=== PATIENT | male | born 1975 | race Caucasian/White ===

== ENCOUNTER 2018-03-15 08:13 | Emergency (ER) | payer SELFPAY ==
[~2018-03-15] VITALS: Ht 180.3 cm; Wt 102.3 kg
[2018-03-15 08:16] VITALS: Ht 180.3 cm; Wt 102.3 kg
[2018-03-15] MEDS ORDERED: TRAZODONE HCL150 MG PO (08:18)
[2018-03-15] MEDS ORDERED: LEXAPRO10 MG PO (08:18)
[2018-03-15] MEDS ORDERED: ZYPREXA10 MG PO (08:18)
[2018-03-15] MEDS ORDERED: CYCLOBENZAPRINE10 MG PO (10:05)
[2018-03-15] MEDS ORDERED: ULTRAM50 MG PO (10:05)
[2018-03-15 10:45] VITALS: BP 133/78
[2018-04-03 08:30] VITALS: Ht 180.3 cm; Wt 102.3 kg
== END 2018-03-15 10:46 | disposition home or self-care (01) ==
LOC: D.ER 08:13
DX: M54.16 Radiculopathy, lumbar region (principal); G40.909 Epilepsy, unspecified, not intractable, without status epilepticus; I10 Essential (primary) hypertension; F17.200 Nicotine dependence, unspecified, uncomplicated

== ENCOUNTER 2018-03-25 07:32 | Inpatient (IN) | payer MEDICAID ==
[~2018-03-25] VITALS: Ht 180.3 cm; Wt 102.1 kg
[~2018-03-25 07:32] MED LIST: CYCLOBENZAPRINE10 MG PO; LEXAPRO10 MG PO; TRAZODONE HCL150 MG PO; ULTRAM50 MG PO; ZYPREXA10 MG PO
--- NOTE | 2018-03-25 08:03 | NUR ---
POS OCCULT STOOL IS POSITIVE.
[2018-03-25 08:13] VITALS: BP 154/86
[2018-03-25 08:23] LABS: BASOPHILS 0.3 % (0-2); EOSINOPHILS 5.5 % (0-7); HEMATOCRIT 42.1 % (42.0-54.0); HEMOGLOBIN 14.5 g/dL (13.5-17.5); IMMATURE GRANULOCYTES 0.3 % (0-5); LYMPHOCYTES 13.7 % (15-50); MCH 30.9 pg (26.0-34.0); MCHC 34.4 g/dL (31.0-37.0); MCV 89.6 fL (80.0-100.0); MEAN PLATELET VOLUME 9.2 fL (7.4-10.4); MONOCYTES 4.7 % (2-11); NEUTROPHILS 75.5 % (40-80); PLATELET COUNT 251 10x3/uL (130-400); WBC 11.7 10x3/uL (4.8-10.8)
[2018-03-25 08:27] LABS: APTT 28.3 SECONDS (22.8-39.4); INR 0.92 (0.85-1.17); PROTIME 11.9 SECONDS (11.6-15.0)
[2018-03-25 08:31] LABS: APPEARANCE CLEAR (CLEAR); BILIRUBIN NEGATIVE (NEGATIVE); COLOR YELLOW (YELLOW); GLUCOSE NEGATIVE (NEGATIVE); KETONE NEGATIVE (NEGATIVE); NITRITE NEGATIVE (NEGATIVE); PROTEIN NEGATIVE (NEGATIVE); SPECIFIC GRAVITY 1.015 (1.005-1.020); UROBILINOGEN NORMAL (NORMAL)
[2018-03-25 08:32] LABS: ALBUMIN 3.5 g/dL (3.4-5.0); ALKALINE PHOSPHATASE 102 U/L (46-116); ALT (SGPT) 23 U/L (10-68); AMYLASE - SERUM 88 U/L (25-115); BILIRUBIN - TOTAL 0.26 mg/dL (0.2-1.3); CALC OSMOLALITY 282 mosm/kg (275-300); CALCIUM 8.6 mg/dL (8.5-10.1); CARBON DIOXIDE 26.4 mmol/L (21.0-32.0); CHLORIDE - SERUM 105 mmol/L (98-107); CREATININE - SERUM 1.1 mg/dL (0.6-1.3); LIPASE 155 U/L (73-393); POTASSIUM - SERUM 4.1 mmol/L (3.5-5.1); PROTEIN - SERUM 7.4 g/dL (6.4-8.2); SODIUM 140 mmol/L (136-145); UREA NITROGEN 15 mg/dL (7-18); eGFR NON AFRICAN AMERICAN 78 mL/min (90-120)
[2018-03-25 08:33] LABS: GLUCOSE 149 mg/dL (74-106)
[2018-03-25 08:35] LABS: BACTERIA FEW /hpf (NONE SEEN); EPITHELIAL CELLS RARE /hpf (0-5); RED CELLS - URINE 0-5 /hpf (0-5); WHITE CELLS - URINE OCC /hpf (0-5)
--- NOTE | 2018-03-25 09:37 | NUR ---
PT REQUESTING SOMETHING FOR PAIN 12/06, REPORTS THE MORPHINE HE RECEIVED EARLIER HELPED SOME BUT HAS WORN OFF. EDP NOTIFIED. PATIENT TO RESTROOM.
[2018-03-25 09:50] VITALS: BP 169/97
[2018-03-25 11:03] VITALS: BP 146/102
[2018-03-25 12:00] VITALS: BP 140/83
[2018-03-25 13:13] VITALS: BP 140/100; BMI 31.4
[2018-03-25 14:52] LABS: HEMATOCRIT 40.4 % (42.0-54.0); HEMOGLOBIN 13.9 g/dL (13.5-17.5)
[2018-03-25 20:22] LABS: HEMATOCRIT 40.7 % (42.0-54.0); HEMOGLOBIN 13.9 g/dL (13.5-17.5)
[2018-03-26 00:35] VITALS: BP 135/84
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
--- NOTE | 2018-03-26 04:42 | NUR ---
PT APOLOGIZED FOR HIS BEHAVIOR. RESUMING POC. WITH PT RATHER THAN TRADING WITH OTHER RN. WILL CONTINUE POC. OBTAINED ORDER FOR 10 REGLAN AND 50 NOELLE.
[2018-03-26 04:46] VITALS: BP 155/83
--- NOTE | 2018-03-26 05:57 | NUR ---
A CAVEAT TP PREVIOUS NOTES, ALEX WILLIS SPOKE WITH ER DOC AND REGLAN/NOELLE HAS BEEN USED IN THE PAST FOR MIGRANES. CALLED [facility] [phone] NUMBER AND THEY DIRECTED ME TO ER FOR PAGE FOR ORDERS. OBTAINED ORDER THROUGH ER DOC. WILL CONTINUE POC.
[2018-03-26 07:45] LABS: BASOPHILS 0.4 % (0-2); EOSINOPHILS 2.7 % (0-7); HEMATOCRIT 40.9 % (42.0-54.0); HEMOGLOBIN 14.1 g/dL (13.5-17.5); IMMATURE GRANULOCYTES 0.7 % (0-5); LYMPHOCYTES 23.1 % (15-50); MCH 30.7 pg (26.0-34.0); MCHC 34.5 g/dL (31.0-37.0); MCV 88.9 fL (80.0-100.0); MONOCYTES 4.6 % (2-11); NEUTROPHILS 68.5 % (40-80); PLATELET COUNT 245 10x3/uL (130-400); RDW 13.1 % (11.5-14.5); WBC 9.4 10x3/uL (4.8-10.8)
[2018-03-26 08:08] VITALS: BP 141/79
[2018-03-26 08:11] LABS: ALBUMIN 3.5 g/dL (3.4-5.0); ALKALINE PHOSPHATASE 93 U/L (46-116); ALT (SGPT) 24 U/L (10-68); BILIRUBIN - TOTAL 0.33 mg/dL (0.2-1.3); C-REACTIVE PROTEIN 1.5 mg/dL (0.0-0.9); CALC OSMOLALITY 277 mosm/kg (275-300); CALCIUM 8.5 mg/dL (8.5-10.1); CARBON DIOXIDE 25.4 mmol/L (21.0-32.0); CHLORIDE - SERUM 102 mmol/L (98-107); CREATININE - SERUM 0.9 mg/dL (0.6-1.3); GLUCOSE 113 mg/dL (74-106); PROTEIN - SERUM 7.1 g/dL (6.4-8.2); SODIUM 139 mmol/L (136-145); eGFR NON AFRICAN AMERICAN > 90 mL/min (90-120)
[2018-03-26 08:16] LABS: UREA NITROGEN 10 mg/dL (7-18)
[2018-03-26 11:14] LABS: ERYTHROCYTE SEDIMENTATION RATE 20 mm/hr (0-15)
[2018-03-26 12:16] VITALS: BP 155/92
--- NOTE | 2018-03-26 14:38 | NUR ---
RIGHT WRIST IV INFILTRATED AND REMOVED. RESITED IN RIGHT HAND WITH #22G ANGIOCATH X 1 ATTEMPT PER MORENO DAWSON
[2018-03-26 15:10] VITALS: Ht 180.3 cm; Wt 102.1 kg
--- NOTE | 2018-03-26 16:25 | NUR ---
RATIONALE FOR SCD'S EXPLAINED. REFUSED SCD'S
[2018-03-26 17:21] VITALS: BP 145/39
--- NOTE | 2018-03-26 19:12 | NUR ---
PATIENT IS RESTING IN HIS BED. HE DENIES ANY NEEDS. BED IS DOWN LOW WITH SIDE RAILS UP X2. CALL LIGHT IS IN REACH.
[2018-03-27 01:32] VITALS: BP 137/83
[2018-03-27 07:01] LABS: BASOPHILS 0.2 % (0-2); EOSINOPHILS 4.1 % (0-7); HEMATOCRIT 40.2 % (42.0-54.0); HEMOGLOBIN 13.8 g/dL (13.5-17.5); IMMATURE GRANULOCYTES 0.5 % (0-5); LYMPHOCYTES 30.1 % (15-50); MCH 30.5 pg (26.0-34.0); MCHC 34.3 g/dL (31.0-37.0); MCV 88.7 fL (80.0-100.0); MEAN PLATELET VOLUME 8.8 fL (7.4-10.4); MONOCYTES 9.1 % (2-11); PLATELET COUNT 255 10x3/uL (130-400); RBC 4.53 10x6/uL (4.20-6.10); RDW 12.8 % (11.5-14.5); WBC 8.6 10x3/uL (4.8-10.8)
[2018-03-27 07:11] LABS: ALBUMIN 3.4 g/dL (3.4-5.0); ALKALINE PHOSPHATASE 87 U/L (46-116); ALT (SGPT) 24 U/L (10-68); BILIRUBIN - TOTAL 0.27 mg/dL (0.2-1.3); CALC OSMOLALITY 275 mosm/kg (275-300); CALCIUM 8.7 mg/dL (8.5-10.1); CARBON DIOXIDE 27.1 mmol/L (21.0-32.0); CHLORIDE - SERUM 102 mmol/L (98-107); CREATININE - SERUM 0.9 mg/dL (0.6-1.3); GLUCOSE 114 mg/dL (74-106); POTASSIUM - SERUM 3.8 mmol/L (3.5-5.1); PROTEIN - SERUM 6.9 g/dL (6.4-8.2); SODIUM 138 mmol/L (136-145); UREA NITROGEN 11 mg/dL (7-18); eGFR NON AFRICAN AMERICAN > 90 mL/min (90-120)
[2018-03-27 08:32] VITALS: BP 154/89
--- NOTE | 2018-03-27 09:30 | NUR ---
PT UP AMBULATING IN THE HALLWAY. RESP EVEN AND NONLABORED. PT A/O X4. NAD NOTED.
[2018-03-27] MEDS ORDERED: LEVAQUIN750 MG PO (09:55)
[2018-03-27] MEDS ORDERED: FLAGYL500 MG PO (09:55)
[2018-03-27] MEDS ORDERED: PROTONIX40 MG PO (09:56)
--- NOTE | 2018-03-27 10:51 | MORECARE ---
CASE MANAGEMENT DISCHARGE SUMMARY PATIENT: MOLLY EDMONDSON UNIT: [id number] ADM DATE: 03/25/18 AGE: 42 : [birth year] SEX: M ROOM/BED: D.1213 AUTHOR: GLADYS TAYLOR PHYSICIAN: REFERRING PHYSICIAN: SMITA LONG MD DATE OF SERVICE: 03/27/18 Discharge Plan Patient Name: MOLLY EDMONDSON Facility: [facility]:[place] : 1975 Planned Disposition: Home Anticipated Discharge Date: 03/27/18 Discharge Date: Expected LOS: 2 Initial Reviewer: [email or web address] Initial Review Date: 03/27/2018 Generated: 03/27/18 11:51 am Comments DCP- Discharge Planning Updated by [email or web address]: Leonarda Mendoza on 03/27/18 9:[address] Patient Name: MOLLY EDMONDSON Admission Status: ER Accout number: [id number] Admission Date: 03-25-2018 : 1975 Admission Diagnosis: Attending: SMITA LONG Current LOS: 2 Anticipated DC Date: 03-27-2018 Planned Disposition: Home Primary Insurance: MEDICAID [place] Discharge Planning Comments: CM MET WITH PATIENT ABOUT DC PLANNING/NEEDS. [facility] PLANS TO DC HOME WITH FAMILY. [facility] DOESN'T HAVE A PCP YET BUT IS GOING TO GET ONE. CM WILL GIVE PATIENT A LIST OF PROVIDERS. CM WILL FOLLOW AND ASSIST NEEDED WITH DC PLANNING/NEEDS. Fishing Worker: Leonarda Mendoza DCPIA - Discharge Planning Initial Assessment Updated by [email or web address]: Leonarda Mendoza on 03/27/18 10:41 am * Is the patient Alert and Oriented? Yes * PCP NOT YET * Pharmacy [facility] * Preadmission Environment Home with Family * ADLs Independent * Equipment None * List name and contact numbers for known caregivers / representatives who currently or will assist patient after discharge: HAN COELLO, * Community resources currently utilized None * Additional services required to return to the preadmission environment? No * Can the patient safely return to the preadmission environment? Yes * Has this patient been hospitalized within the prior 30 days at any hospital? No Patient Name: MOLLY EDMONDSON Page 14019 at 1051 All edits/amendments must be made on the electronic document DICTATION DATE: 03/27/18 1051 DESIGN AGENT: BOUCHRA 03/27/18 1051 RPT#: [id number] DC DATE: STATUS: ADM IN [facility] [address] [place] [address] END OF REPORT
--- NOTE | 2018-03-27 16:04 | MORECARE ---
CASE MANAGEMENT DISCHARGE SUMMARY PATIENT: MOLLY EDMONDSON UNIT: [id number] ADM DATE: 03/25/18 AGE: 42 : 77 SEX: M ROOM/BED: D.1213 AUTHOR: GLADYS TAYLOR PHYSICIAN: REFERRING PHYSICIAN: SMITA LONG MD DATE OF SERVICE: 03/27/18 Discharge Plan Patient Name: MOLLY EDMONDSON Facility: [facility]:[place] : 1975 Planned Disposition: Home Anticipated Discharge Date: 03/27/18 Discharge Date: Expected LOS: 2 Initial Reviewer: [email or web address] Initial Review Date: 03/27/2018 Generated: 03/27/18 5:04 pm Comments DCP- Discharge Planning Updated by [email or web address]: Leonadra Mendoza on 03/27/18 3:[address] Patient Name: MOLLY EDMONDSON Admission Status: ER Accout number: [id number] Admission Date: 03-25-2018 : 1975 Admission Diagnosis:VASCULAR DISORDER OF INTESTINE, UNSPECIFIED Attending: SMITA LONG Current LOS: 2 Anticipated DC Date: 03-27-2018 Planned Disposition: Home Primary Insurance: MEDICAID [place] Discharge Planning Comments: CM SPOKE WITH DR. BRUCE AND SHE STATES PATIENT CAN BE DISCHARGED. HE NEEDS TO GET HIS RECORDS TO HER ON HIS TREATMENT FOR GASTRIC CANCER FROM THE FACILITY HE USED. HE STATES HIS MOM IS WORKING ON IT. HE NEEDS APPOINTMENT WITH DR. BRUCE IN 2 WEEKS. COMPLETE 10 DAYS OF ANTIBIOTICS. Park Recreation Manager: Leonarda Mendoza DCP- Discharge Planning Updated by [email or web address]: Leonarda Mendoza on 03/27/18 9:[address] Patient Name: MOLLY EDMONDSON Admission Status: ER Accout number: [id number] Admission Date: 03-25-2018 : 1975 Admission Diagnosis: Attending: SMITA LONG Current LOS: 2 Anticipated DC Date: 03-27-2018 Planned Disposition: Home Primary Insurance: MEDICAID [place] Discharge Planning Comments: CM MET WITH PATIENT ABOUT DC PLANNING/NEEDS. [facility] PLANS TO DC HOME WITH FAMILY. [facility] DOESN'T HAVE A PCP YET BUT IS GOING TO GET ONE. CM WILL GIVE PATIENT A LIST OF PROVIDERS. CM WILL FOLLOW AND ASSIST NEEDED WITH DC PLANNING/NEEDS. Park Recreation Manager: Leonarda Mendoza DCPIA - Discharge Planning Initial Assessment Updated by [email or web address]: Leonarda Mendoza on 03/27/18 10:41 am * Is the patient Alert and Oriented? Yes * PCP NOT YET * Pharmacy [facility] * Preadmission Environment Home with Family * ADLs Independent * Equipment None * List name and contact numbers for known caregivers / representatives who currently or will assist patient after discharge: HAN COELLO, * Community resources currently utilized None * Additional services required to return to the preadmission environment? No * Can the patient safely return to the preadmission environment? Yes * Has this patient been hospitalized within the prior 30 days at any hospital? No Last DP export: 03/27/18 9:51 a Patient Name: MOLLY EDMONDSON Page 65177 at 1604 All edits/amendments must be made on the electronic document DICTATION DATE: 03/27/181602 CATEGORY DEVELOPMENT ANALYST: BOUCHRA 03/27/181602 RPT#: [id number] DC DATE: STATUS: ADM IN [facility] [address] [place] [address] END OF REPORT
--- NOTE | 2018-03-27 17:42 | NUR ---
PATIENT UP AMBULATING ABOUT FACILITY IV D/C'D AT 1630. PATIENT UPSET ABOUT NO PAIN MEDS. DISCHARGE INSTRUCTIONS GIVEN AND VERBALIZED UNDERSTANDING. PATIENT VERY VERY UPSET ABOUT NO PAIN MEDS. DR. MOYER NOTIFIED AND SAID NO PAIN MEDS D/T SLOWING BOWEL DOWN THAT HE CAN TAKE TYLENOL IF NEEDED. PT DISCHARGE.
--- NOTE | 2018-03-28 08:13 | MORECARE ---
CASE MANAGEMENT DISCHARGE SUMMARY PATIENT: MOLLY EDMONDSON UNIT: [id number] ADM DATE: 03/25/18 AGE: 42 : 77 SEX: M ROOM/BED: D.1213 AUTHOR: GLADYS TAYLOR PHYSICIAN: REFERRING PHYSICIAN: SMITA LONG MD DATE OF SERVICE: 03/28/18 Discharge Plan Patient Name: MOLLY EDMONDSON Facility: [facility]:[place] : 1975 Planned Disposition: Home Anticipated Discharge Date: 03/27/18 Discharge Date: 03/27/2018 Expected LOS: 2 Initial Reviewer: [email or web address] Initial Review Date: 03/27/2018 Generated: 03/28/18 9:13 am Comments DCP- Discharge Planning Updated by [email or web address]: Leonarda Mendoza on 03/27/18 3:[address] Patient Name: MOLLY EDMONDSON Admission Status: ER Accout number: [id number] Admission Date: 03-25-2018 : 1975 Admission Diagnosis:VASCULAR DISORDER OF INTESTINE, UNSPECIFIED Attending: SMITA LONG Current LOS: 2 Anticipated DC Date: 03-27-2018 Planned Disposition: Home Primary Insurance: MEDICAID [place] Discharge Planning Comments: CM SPOKE WITH DR. BRUCE AND SHE STATES PATIENT CAN BE DISCHARGED. HE NEEDS TO GET HIS RECORDS TO HER ON HIS TREATMENT FOR GASTRIC CANCER FROM THE FACILITY HE USED. HE STATES HIS MOM IS WORKING ON IT. HE NEEDS APPOINTMENT WITH DR. BRUCE IN 2 WEEKS. COMPLETE 10 DAYS OF ANTIBIOTICS. Marine Cargo Specialist: Leonarda Mendoza DCP- Discharge Planning Updated by [email or web address]: Leonarda Mendoza on 03/27/18 9:[address] Patient Name: MOLLY EDMONDSON Admission Status: ER Accout number: [id number] Admission Date: 03-25-2018 : 1975 Admission Diagnosis: Attending: SMITA LONG Current LOS: 2 Anticipated DC Date: 03-27-2018 Planned Disposition: Home Primary Insurance: MEDICAID [place] Discharge Planning Comments: CM MET WITH PATIENT ABOUT DC PLANNING/NEEDS. [facility] PLANS TO DC HOME WITH FAMILY. [facility] DOESN'T HAVE A PCP YET BUT IS GOING TO GET ONE. CM WILL GIVE PATIENT A LIST OF PROVIDERS. CM WILL FOLLOW AND ASSIST NEEDED WITH DC PLANNING/NEEDS. Marine Cargo Specialist: Leonarda Mendoza DCPIA - Discharge Planning Initial Assessment Updated by [email or web address]: Leonarda Mendoza on 03/27/18 10:41 am * Is the patient Alert and Oriented? Yes * PCP NOT YET * Pharmacy [facility] * Preadmission Environment Home with Family * ADLs Independent * Equipment None * List name and contact numbers for known caregivers / representatives who currently or will assist patient after discharge: HAN COELLO, * Community resources currently utilized None * Additional services required to return to the preadmission environment? No * Can the patient safely return to the preadmission environment? Yes * Has this patient been hospitalized within the prior 30 days at any hospital? No Last DP export: 03/27/18 3:04 p Patient Name: MOLLY EDMONDSON Page 34803 at 0813 All edits/amendments must be made on the electronic document DICTATION DATE: 03/28/18812 BALLOON MAKER: BOUCHRA 03/28/18812 RPT#: [id number] DC DATE:03/27/18 STATUS: DIS IN [facility] [address] [place] [address] END OF REPORT
[2018-03-30 20:07] LABS: OVA + PARASITE EXAM Final report (())
== END 2018-03-27 17:46 | disposition home or self-care (01) | DRG 394 ==
LOC: D.ER 07:32 → D.M3 10:24 → D.EDHOLD 10:24 → D.M3 11:03
PROVIDERS: Family Medicine; ADMIT Internal Medicine Nephrology
DX: K55.9 Vascular disorder of intestine, unspecified (principal); F31.30 Bipolar disorder, current episode depressed, mild or moderate severity, unspecified; F17.213 Nicotine dependence, cigarettes, with withdrawal; K52.9 Noninfective gastroenteritis and colitis, unspecified; I10 Essential (primary) hypertension; K59.00 Constipation, unspecified; G89.29 Other chronic pain

== ENCOUNTER 2018-04-03 08:22 | Emergency (ER) | payer MEDICAID ==
[~2018-04-03] VITALS: Ht 180.3 cm; Wt 100.0 kg
[~2018-04-03 08:22] MED LIST changes: +FLAGYL500 MG PO; +LEVAQUIN750 MG PO; +PROTONIX40 MG PO
[2018-04-03 08:30] VITALS: BP 141/98; Ht 180.3 cm; Wt 100.0 kg
[2018-04-03 09:06] LABS: BASOPHILS 0.3 % (0-2); HEMATOCRIT 39.6 % (42.0-54.0); HEMOGLOBIN 13.4 g/dL (13.5-17.5); IMMATURE GRANULOCYTES 0.2 % (0-5); LYMPHOCYTES 26.1 % (15-50); MCH 30.5 pg (26.0-34.0); MCHC 33.8 g/dL (31.0-37.0); MEAN PLATELET VOLUME 8.7 fL (7.4-10.4); MONOCYTES 6.2 % (2-11); NEUTROPHILS 63.2 % (40-80); PLATELET COUNT 224 10x3/uL (130-400); RDW 13.2 % (11.5-14.5); WBC 5.9 10x3/uL (4.8-10.8)
[2018-04-03 09:35] LABS: ALBUMIN 3.3 g/dL (3.4-5.0); ALKALINE PHOSPHATASE 82 U/L (46-116); ALT (SGPT) 24 U/L (10-68); BILIRUBIN - TOTAL 0.16 mg/dL (0.2-1.3); CALC OSMOLALITY 283 mosm/kg (275-300); CALCIUM 8.4 mg/dL (8.5-10.1); CARBON DIOXIDE 26.2 mmol/L (21.0-32.0); CHLORIDE - SERUM 109 mmol/L (98-107); CREATININE - SERUM 0.9 mg/dL (0.6-1.3); GLUCOSE 110 mg/dL (74-106); POTASSIUM - SERUM 4.2 mmol/L (3.5-5.1); PROTEIN - SERUM 6.6 g/dL (6.4-8.2); SODIUM 142 mmol/L (136-145); UREA NITROGEN 12 mg/dL (7-18); eGFR NON AFRICAN AMERICAN > 90 mL/min (90-120)
[2018-04-03 09:38] LABS: AMYLASE - SERUM 84 U/L (25-115); LIPASE 144 U/L (73-393); TROPONIN-I < 0.017 ng/mL (0.000-0.060)
== END 2018-04-03 09:45 | disposition home or self-care (01) ==
LOC: D.ER 08:22
PROVIDERS: Emergency Medicine
DX: R10.30 Lower abdominal pain, unspecified (principal); F17.200 Nicotine dependence, unspecified, uncomplicated

== ENCOUNTER 2018-04-15 10:55 | Emergency (ER) | payer MEDICAID ==
[~2018-04-15] VITALS: Ht 180.3 cm; Wt 100.0 kg
[2018-04-15 10:59] VITALS: Ht 180.3 cm; Wt 100.0 kg
[2018-04-15 11:39] LABS: APPEARANCE CLEAR (CLEAR); BILIRUBIN NEGATIVE (NEGATIVE); COLOR YELLOW (YELLOW); GLUCOSE NEGATIVE (NEGATIVE); KETONE NEGATIVE (NEGATIVE); NITRITE NEGATIVE (NEGATIVE); PROTEIN 1+ mg/dL (NEGATIVE); SPECIFIC GRAVITY 1.015 (1.005-1.020); UROBILINOGEN NORMAL (NORMAL)
[2018-04-15 11:40] LABS: BACTERIA FEW /hpf (NONE SEEN); EPITHELIAL CELLS NSEEN /hpf (0-5); RED CELLS - URINE 0-5 /hpf (0-5); WHITE CELLS - URINE 0-5 /hpf (0-5)
[2018-04-15 12:03] LABS: BASOPHILS 0.3 % (0-2); EOSINOPHILS 2.7 % (0-7); HEMATOCRIT 42.1 % (42.0-54.0); HEMOGLOBIN 14.8 g/dL (13.5-17.5); IMMATURE GRANULOCYTES 0.3 % (0-5); LYMPHOCYTES 28.8 % (15-50); MCH 31.1 pg (26.0-34.0); MCHC 35.2 g/dL (31.0-37.0); MCV 88.4 fL (80.0-100.0); MEAN PLATELET VOLUME 9.9 fL (7.4-10.4); MONOCYTES 6.4 % (2-11); NEUTROPHILS 61.5 % (40-80); PLATELET COUNT 227 10x3/uL (130-400); RBC 4.76 10x6/uL (4.20-6.10); RDW 12.7 % (11.5-14.5); WBC 6.7 10x3/uL (4.8-10.8)
[2018-04-15 12:16] LABS: INR 0.98 (0.85-1.17); PROTIME 12.5 SECONDS (11.6-15.0)
[2018-04-15 13:02] LABS: ALBUMIN 3.8 g/dL (3.4-5.0); ALKALINE PHOSPHATASE 102 U/L (46-116); ALT (SGPT) 20 U/L (10-68); AMYLASE - SERUM 87 U/L (25-115); BILIRUBIN - TOTAL 0.47 mg/dL (0.2-1.3); CALC OSMOLALITY 273 mosm/kg (275-300); CALCIUM 8.6 mg/dL (8.5-10.1); CHLORIDE - SERUM 103 mmol/L (98-107); GLUCOSE 81 mg/dL (74-106); LIPASE 332 U/L (73-393); POTASSIUM - SERUM 4.2 mmol/L (3.5-5.1); PROTEIN - SERUM 7.4 g/dL (6.4-8.2); SODIUM 138 mmol/L (136-145); UREA NITROGEN 10 mg/dL (7-18); eGFR NON AFRICAN AMERICAN 87 mL/min (90-120)
[2018-04-15] MEDS ORDERED: BENTYL 20 MG TA20 MG PO (15:38)
[2018-04-15] MEDS ORDERED: CIPRO500 MG PO (15:38)
[2018-04-15] MEDS ORDERED: FLAGYL500 MG PO (15:38)
[2018-04-15 16:13] VITALS: BP 130/92
== END 2018-04-15 16:18 | disposition home or self-care (01) ==
LOC: D.ER 10:55
PROVIDERS: Family Medicine
DX: K57.92 Diverticulitis of intestine, part unspecified, without perforation or abscess without bleeding (principal); K29.70 Gastritis, unspecified, without bleeding; R11.0 Nausea; Z86.73 Personal history of transient ischemic attack (TIA), and cerebral infarction without residual deficits; F17.200 Nicotine dependence, unspecified, uncomplicated

== ENCOUNTER 2018-04-21 20:46 | Emergency (ER) | payer MEDICAID ==
[~2018-04-21] VITALS: Ht 180.3 cm; Wt 100.0 kg
[~2018-04-21 20:46] MED LIST changes: +BENTYL 20 MG TA20 MG PO; +CIPRO500 MG PO
[2018-04-21 20:59] VITALS: Ht 180.3 cm; Wt 100.0 kg
[2018-04-21 21:44] LABS: APTT 27.1 SECONDS (22.8-39.4); INR 0.97 (0.85-1.17); PROTIME 12.4 SECONDS (11.6-15.0)
[2018-04-21 21:48] LABS: BASOPHILS 0.3 % (0-2); HEMATOCRIT 40.1 % (42.0-54.0); IMMATURE GRANULOCYTES 0.3 % (0-5); LYMPHOCYTES 41.2 % (15-50); MCH 30.9 pg (26.0-34.0); MCHC 34.9 g/dL (31.0-37.0); MCV 88.5 fL (80.0-100.0); MEAN PLATELET VOLUME 9.6 fL (7.4-10.4); MONOCYTES 6.5 % (2-11); NEUTROPHILS 48.7 % (40-80); PLATELET COUNT 203 10x3/uL (130-400); RBC 4.53 10x6/uL (4.20-6.10); RDW 12.9 % (11.5-14.5); WBC 7.1 10x3/uL (4.8-10.8)
[2018-04-21 22:09] LABS: ALBUMIN 3.8 g/dL (3.4-5.0); ALKALINE PHOSPHATASE 105 U/L (46-116); ALT (SGPT) 21 U/L (10-68); BILIRUBIN - TOTAL 0.22 mg/dL (0.2-1.3); CALC OSMOLALITY 282 mosm/kg (275-300); CALCIUM 8.5 mg/dL (8.5-10.1); CARBON DIOXIDE 23.5 mmol/L (21.0-32.0); CHLORIDE - SERUM 105 mmol/L (98-107); CREATININE - SERUM 1.2 mg/dL (0.6-1.3); GLUCOSE 93 mg/dL (74-106); POTASSIUM - SERUM 3.7 mmol/L (3.5-5.1); SODIUM 142 mmol/L (136-145); UREA NITROGEN 12 mg/dL (7-18); eGFR NON AFRICAN AMERICAN 71 mL/min (90-120)
[2018-04-21 22:18] LABS: C-REACTIVE PROTEIN 1.1 mg/dL (0.0-0.9); CKMB 0.6 U/L (0.0-3.6); CREATINE KINASE 53 UL (21-232); LIPASE 118 U/L (73-393)
[2018-04-21] MEDS ORDERED: FLAGYL500 MG PO (23:32)
[2018-04-21] MEDS ORDERED: CIPRO500 MG PO (23:32)
[2018-04-21 23:51] VITALS: BP 155/91
== END 2018-04-21 23:51 | disposition home or self-care (01) ==
LOC: D.ER 20:46
PROVIDERS: Family Medicine
DX: K92.2 Gastrointestinal hemorrhage, unspecified (principal); K52.9 Noninfective gastroenteritis and colitis, unspecified; F17.200 Nicotine dependence, unspecified, uncomplicated

== ENCOUNTER 2018-05-02 23:42 | Emergency (ER) | payer MEDICAID ==
[~2018-05-02] VITALS: Ht 180.3 cm; Wt 100.0 kg
[2018-05-03 00:05] VITALS: Ht 180.3 cm; Wt 100.0 kg
[2018-05-03 01:08] LABS: BASOPHILS 0.3 % (0-2); EOSINOPHILS 4.5 % (0-7); HEMATOCRIT 40.7 % (42.0-54.0); HEMOGLOBIN 14.2 g/dL (13.5-17.5); IMMATURE GRANULOCYTES 0.3 % (0-5); LYMPHOCYTES 28.9 % (15-50); MCH 30.5 pg (26.0-34.0); MCHC 34.9 g/dL (31.0-37.0); MCV 87.5 fL (80.0-100.0); MONOCYTES 4.7 % (2-11); NEUTROPHILS 61.3 % (40-80); PLATELET COUNT 210 10x3/uL (130-400); RBC 4.65 10x6/uL (4.20-6.10); RDW 12.8 % (11.5-14.5); WBC 8.7 10x3/uL (4.8-10.8)
[2018-05-03 01:10] LABS: APPEARANCE CLEAR (CLEAR); BILIRUBIN NEGATIVE (NEGATIVE); COLOR YELLOW (YELLOW); GLUCOSE NEGATIVE (NEGATIVE); KETONE NEGATIVE (NEGATIVE); NITRITE NEGATIVE (NEGATIVE); PROTEIN NEGATIVE (NEGATIVE); SPECIFIC GRAVITY 1.015 (1.005-1.020); UROBILINOGEN NORMAL (NORMAL)
[2018-05-03 01:15] LABS: ALBUMIN 3.6 g/dL (3.4-5.0); ALKALINE PHOSPHATASE 109 U/L (46-116); ALT (SGPT) 27 U/L (10-68); BILIRUBIN - TOTAL 0.27 mg/dL (0.2-1.3); CALC OSMOLALITY 280 mosm/kg (275-300); CALCIUM 8.6 mg/dL (8.5-10.1); CARBON DIOXIDE 27.1 mmol/L (21.0-32.0); CHLORIDE - SERUM 104 mmol/L (98-107); GLUCOSE 101 mg/dL (74-106); PROTEIN - SERUM 7.2 g/dL (6.4-8.2); SODIUM 141 mmol/L (136-145); UREA NITROGEN 13 mg/dL (7-18); eGFR NON AFRICAN AMERICAN 87 mL/min (90-120)
[2018-05-03 03:48] VITALS: BP 135/45
== END 2018-05-03 03:49 | disposition home or self-care (01) ==
LOC: D.ER 23:42
PROVIDERS: Family Medicine
DX: R10.84 Generalized abdominal pain (principal)

== ENCOUNTER 2018-06-19 15:23 | Emergency (ER) | payer OTHER ==
[~2018-06-19] VITALS: Ht 175.3 cm; Wt 100.0 kg
[2018-06-19 15:25] VITALS: Ht 175.3 cm; Wt 100.0 kg
[2018-06-19] MEDS ORDERED: PHENERGAN25 M1 PO (15:27)
[2018-06-19] MEDS ORDERED: FAMOTIDINE10 MG PO (15:27)
[2018-06-19] MEDS ORDERED: CARAFATE1 G PO (15:28)
[2018-06-19 15:58] LABS: BASOPHILS 0.3 % (0-2); EOSINOPHILS 1.2 % (0-7); HEMATOCRIT 42.7 % (42.0-54.0); HEMOGLOBIN 15.1 g/dL (13.5-17.5); IMMATURE GRANULOCYTES 0.1 % (0-5); LYMPHOCYTES 29.9 % (15-50); MCH 30.8 pg (26.0-34.0); MCHC 35.4 g/dL (31.0-37.0); MEAN PLATELET VOLUME 9.1 fL (7.4-10.4); MONOCYTES 5.9 % (2-11); NEUTROPHILS 62.6 % (40-80); PLATELET COUNT 189 10x3/uL (130-400); RBC 4.91 10x6/uL (4.20-6.10); RDW 12.5 % (11.5-14.5); WBC 7.3 10x3/uL (4.8-10.8)
[2018-06-19 16:15] LABS: APPEARANCE CLEAR (CLEAR); BILIRUBIN NEGATIVE (NEGATIVE); COLOR YELLOW (YELLOW); GLUCOSE NEGATIVE (NEGATIVE); KETONE NEGATIVE (NEGATIVE); NITRITE NEGATIVE (NEGATIVE); PROTEIN NEGATIVE (NEGATIVE); UROBILINOGEN NORMAL (NORMAL)
[2018-06-19 16:27] LABS: ALBUMIN 3.8 g/dL (3.4-5.0); ALKALINE PHOSPHATASE 85 U/L (46-116); ALT (SGPT) 26 U/L (10-68); AMYLASE - SERUM 69 U/L (25-115); BILIRUBIN - TOTAL 0.34 mg/dL (0.2-1.3); CALC OSMOLALITY 276 mosm/kg (275-300); CALCIUM 8.8 mg/dL (8.5-10.1); CARBON DIOXIDE 22.9 mmol/L (21.0-32.0); CHLORIDE - SERUM 105 mmol/L (98-107); GLUCOSE 89 mg/dL (74-106); LIPASE 104 U/L (73-393); POTASSIUM - SERUM 3.8 mmol/L (3.5-5.1); PROTEIN - SERUM 7.2 g/dL (6.4-8.2); SODIUM 140 mmol/L (136-145); UREA NITROGEN 10 mg/dL (7-18); eGFR NON AFRICAN AMERICAN 87 mL/min (90-120)
[2018-06-19 16:31] LABS: TROPONIN-I < 0.017 ng/mL (0.000-0.060)
[2018-06-19] MEDS ORDERED: ANUSOL-HC25 MG RC (20:19)
[2018-06-19 20:32] VITALS: BP 142/109
== END 2018-06-19 20:32 | disposition home or self-care (01) ==
LOC: D.ER 15:23
PROVIDERS: Family Medicine
DX: K64.8 Other hemorrhoids (principal); F17.200 Nicotine dependence, unspecified, uncomplicated

== ENCOUNTER 2018-06-23 16:27 | Observation (INO) | payer OTHER ==
--- NOTE | 2018-06-22 07:00 | NUR ---
RECAreli. IN REPORT FROM OFF-GOING NURSE THAT POISON CONTROLL HAS RELEASED PATIENT AND WILL NO LONGER FOLLOW.
[~2018-06-23 16:27] MED LIST changes: +ANUSOL-HC25 MG RC; +CARAFATE1 G PO; +FAMOTIDINE10 MG PO; +PHENERGAN25 M1 PO
[2018-06-23 16:52] LABS: APPEARANCE CLEAR (CLEAR); BILIRUBIN NEGATIVE (NEGATIVE); COLOR YELLOW (YELLOW); GLUCOSE NEGATIVE (NEGATIVE); KETONE NEGATIVE (NEGATIVE); NITRITE NEGATIVE (NEGATIVE); PROTEIN NEGATIVE (NEGATIVE); SPECIFIC GRAVITY 1.025 (1.005-1.020); UROBILINOGEN NORMAL (NORMAL)
[2018-06-23] MEDS ORDERED: ZYPREXA2.5 MG PO (16:53)
[2018-06-23] MEDS ORDERED: ZOLOFT50 MG PO (16:53)
[2018-06-23] MEDS ORDERED: BUPRENORPHIN-N1 EACH SL (16:53)
[2018-06-23] MEDS ORDERED: KLONOPIN1 MG PO (16:54)
[2018-06-23] MEDS ORDERED: PROTONIX40 MG PO (16:54)
--- NOTE | 2018-06-23 16:59 | NUR ---
POISON CONTROL CALLED , STATES JUST MONITOR PT. WATCH FOR ANY ABNORMAL LABS.
[2018-06-23 17:16] LABS: BASOPHILS 0.3 % (0-2); EOSINOPHILS 4.8 % (0-7); HEMATOCRIT 43.1 % (42.0-54.0); IMMATURE GRANULOCYTES 0.5 % (0-5); LYMPHOCYTES 24.4 % (15-50); MCH 30.5 pg (26.0-34.0); MCHC 34.8 g/dL (31.0-37.0); MCV 87.6 fL (80.0-100.0); MEAN PLATELET VOLUME 9.4 fL (7.4-10.4); MONOCYTES 5.2 % (2-11); NEUTROPHILS 64.8 % (40-80); PLATELET COUNT 175 10x3/uL (130-400); RBC 4.92 10x6/uL (4.20-6.10); RDW 12.9 % (11.5-14.5); WBC 6.2 10x3/uL (4.8-10.8)
[2018-06-23 17:18] LABS: UDS - AMPHET NEGATIVE QUAL (NEGATIVE); UDS - BARB NEGATIVE QUAL (NEGATIVE); UDS - BENZO NEGATIVE QUAL (NEGATIVE); UDS - COCAINE NEGATIVE QUAL (NEGATIVE); UDS - OPIATE NEGATIVE QUAL (NEGATIVE); UDS - PCP NEGATIVE QUAL (NEGATIVE); UDS - THC POSITIVE QUAL (NEGATIVE)
[2018-06-23 17:39] VITALS: BP 117/69
[2018-06-23 18:27] LABS: ACETAMINOPHEN 0.9 ug/mL (10.0-30.0); ALBUMIN 2.9 g/dL (3.4-5.0); ALKALINE PHOSPHATASE 81 U/L (46-116); ALT (SGPT) 24 U/L (10-68); BILIRUBIN - TOTAL 0.16 mg/dL (0.2-1.3); CALC OSMOLALITY 283 mosm/kg (275-300); CALCIUM 8.5 mg/dL (8.5-10.1); CARBON DIOXIDE 27.1 mmol/L (21.0-32.0); CHLORIDE - SERUM 109 mmol/L (98-107); CREATININE - SERUM 0.9 mg/dL (0.6-1.3); GLUCOSE 101 mg/dL (74-106); MAGNESIUM - SERUM 1.7 mg/dL (1.8-2.4); POTASSIUM - SERUM 4.1 mmol/L (3.5-5.1); PROTEIN - SERUM 5.7 g/dL (6.4-8.2); SODIUM 142 mmol/L (136-145); UREA NITROGEN 16 mg/dL (7-18); eGFR NON AFRICAN AMERICAN > 90 mL/min (90-120)
[2018-06-23 19:45] VITALS: BP 120/70; BMI 32.5
--- NOTE | 2018-06-23 19:45 | NUR ---
RECEIVED PT TO ROOM 2309 VIA STRETCHER, ICU MONITORS ESTABLISHED, HR SR ON CM, ADMISSION ASSESSMENT COMPLETED.
--- NOTE | 2018-06-23 20:20 | NUR ---
PT STATING THAT HE IS LEAVING AND WILL "DO WHAT HE HAS TO", AND ATTEMPTING TO PULL IV OUT, ATTEMPTS TO DE-ESCALATE THE SITUATION UNSUCCESSFUL, RN X [address] AT [address]ED[address]IDE. WILL PAGE DR LONG PER PT REQUEST, SECURITY CALLED FOR ASSISTANCE.
--- NOTE | 2018-06-23 20:25 | NUR ---
DR LONG NOTIFIED OF PT UPDATE/REQUEST, ORDER RECEIVED FOR 72 HOUR HOLD. PT NOTIFIED. SANDWICH TRAY PROVIDED PER REQUEST, PT VERBALIZES THAT HE WILL NOT HARM HIMSELF OR ANYONE ELSE, CALL LIGHT IN REACH, ALL OTHER NEEDS DENIED.
--- NOTE | 2018-06-23 21:09 | NUR ---
POISON CONTROL CALLED, UPDATE GIVEN.
[2018-06-23 23:00] VITALS: BP 126/75
--- NOTE | 2018-06-24 00:10 | NUR ---
PT RESTING IN BED WITH EYES CLOSED, AROUSES EASILY TO VOICE, ALL NEEDS DENIED.
--- NOTE | 2018-06-24 02:40 | NUR ---
PT ABLE TO GET UP TO BSC WITH MINIMAL ASSISTANCE, SMALL FORMED BM VOIDED, ABLE TO PROVIDE OWN PERICARE AND RETURN TO BED.
[2018-06-24 03:00] VITALS: BP 133/80
--- NOTE | 2018-06-24 05:10 | NUR ---
PT RESTING IN BED BUT AROUSES TO VOICE EASILY, VSS, APPLE JUICE PROVIDED PER REQUEST.
[2018-06-24 09:00] VITALS: BP 137/82
[2018-06-24 15:00] VITALS: BP 136/88
--- NOTE | 2018-06-24 17:50 | NUR ---
WAITING FOR DR. LONG TO PRONOUNCE PATIENT MEDICALLY STABLE FOR TRANSFER TO BEGIN TRANSFER, HAVE INFORMED HIM OF THE NEED FOR HIS NOTE.
--- NOTE | 2018-06-24 19:15 | NUR ---
RESUMED CARE OF PT, SANDWICH TRAY PROVIDED PER REQUEST WITH OJ. BED LOW, CALL LIGHT IN REACH, PT VERBALIZES THAT HE WILL NOT HARM HIMSELF OR ANYONE ELSE WHILE IN THE HOSPITAL. VSS
--- NOTE | 2018-06-24 20:35 | NUR ---
HS MEDS ADMINISTERED PER MD ORDER, PT TOLERATED WITHOUT DIFFICULTY, DENIES ANY NEEDS AT THIS TIME.
--- NOTE | 2018-06-24 23:50 | NUR ---
PT RESTING IN BED WITH EYES CLOSED, AROUSES EASILY TO VOICE, SR ON CM.
[2018-06-25] VITALS: BP 114/75
--- NOTE | 2018-06-25 02:18 | NUR ---
PT RESTING IN BED WITH EYES CLOSED, VSS.
[2018-06-25 04:02] LABS: BASOPHILS 0.3 % (0-2); EOSINOPHILS 7.6 % (0-7); HEMATOCRIT 41.4 % (42.0-54.0); HEMOGLOBIN 14.3 g/dL (13.5-17.5); IMMATURE GRANULOCYTES 0.5 % (0-5); MCH 30.8 pg (26.0-34.0); MCHC 34.5 g/dL (31.0-37.0); MEAN PLATELET VOLUME 9.6 fL (7.4-10.4); MONOCYTES 8.6 % (2-11); PLATELET COUNT 161 10x3/uL (130-400); RBC 4.65 10x6/uL (4.20-6.10); RDW 12.9 % (11.5-14.5); WBC 6.1 10x3/uL (4.8-10.8)
[2018-06-25 04:06] LABS: CALC OSMOLALITY 286 mosm/kg (275-300); CALCIUM 8.4 mg/dL (8.5-10.1); CARBON DIOXIDE 28.3 mmol/L (21.0-32.0); CHLORIDE - SERUM 108 mmol/L (98-107); CREATININE - SERUM 0.9 mg/dL (0.6-1.3); GLUCOSE 95 mg/dL (74-106); POTASSIUM - SERUM 4.2 mmol/L (3.5-5.1); SODIUM 144 mmol/L (136-145); UREA NITROGEN 13 mg/dL (7-18); eGFR NON AFRICAN AMERICAN > 90 mL/min (90-120)
--- NOTE | 2018-06-25 04:36 | NUR ---
AM LABS REVIEWED, NOTHING TO TREAT PER ELECTROLYTE PROTOCOL.
--- NOTE | 2018-06-25 08:38 | NUR ---
PATIENT IS ANXIOUS AND RESTLESS THIS AM, STATES HE IS OK AND READY TO LEAVE, NURSE NOTIFIED SECURITY AND HARPS SECURITY IS TO SEND A GUARD TO SIT WITH PATIENT HE IS ON 72 HOUR HOLD WICH TECHNICALLY STARTS TODAY, ALL REQUIRED INFORMATION HAS BEEN SUBMITTED TO TRANSFER CENTER BY TAMPING MACHINE OPERATOR, PATIENT HAS BEED TAKING NOTE OF UNITS EXITS.
--- NOTE | 2018-06-25 09:15 | NUR ---
HARPS SECURITY PRESENT AND SITTING OUTSIDE DOOR
[2018-06-25 09:52] VITALS: BMI 32.5
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
--- NOTE | 2018-06-25 10:07 | NUR ---
PATIENT NOW STATES, "I DON'T WANT TO WAIT AROUND NO MORE, I'VE WAITED LONG ENOUGH."
--- NOTE | 2018-06-25 10:10 | NUR ---
[employer] DEPT. PRESENT
--- NOTE | 2018-06-25 10:22 | NUR ---
PATIENT AGREES TO WATCH TV AND CALM DOWN, APPOLOGIZES TO THE COMOTION.
--- NOTE | 2018-06-25 10:49 | NUR ---
[facility] WILL NOT TAKE THIS PATIENT BECAUSE HE DOES NOT AGREE TO GO WITHOUT BACK PAIN MEDICATION
--- NOTE | 2018-06-25 11:26 | NUR ---
THIS PATIENT NOT MONITORED DUE TO REFUSAL. MEDICALLY STABLE PER MD. HOLDING FOR PLACEMENT
--- NOTE | 2018-06-25 15:28 | CN ---
PATIENT NAME:MOLLY EDMONDSON MEDICAL RECORD: [id number] : [birth year] LOCATION:AMADOUD.2309 ADMIT DATE: 06/23/18 ACCOUNT: [id number] CONSULTING PHYSICIAN: KEITH JETT MD REFERRING PHYSICIAN: SMITA LONG MD DATE OF CONSULTATION: 06/24/2018 PSYCHIATRIC CONSULTATION IDENTIFYING DATA: The patient is 42 years old and he is admitted to the hospital on a voluntary basis because of an overdose. CHIEF COMPLAINT: Depression. HISTORY OF PRESENT ILLNESS: The patient has a long and convoluted psychiatric and substance abuse history. Starting with his substance abuse history, he said he had some chronic back pain and became addicted to opiates because of physicians prescribing narcotics to him for this. He then tells me that he went on to heroin, but now he has been on Suboxone for some time. He also has a history of mental illness and tells me he has been hospitalized before and diagnosed with bipolar disorder. He says that he took the overdose of Pepcid, Phenergan, and Carafate yesterday in an attempt to kill himself because the residential facility he is living in is kicking him out. They are kicking him out because they found marijuana in his possession, but he says it does not belong to him. The patient denies thoughts of harming others. He denies psychotic symptoms. He endorses numerous depressive symptoms, but denies any thoughts of harming himself at this moment. MENTAL STATUS EXAMINATION: The patient is awake; alert; and oriented to person, place, time, and situation. His mood is flat. His affect is constricted. Thought processes are circumstantial. Memory, concentration, and abstraction abilities are mildly impaired. He denies any active intent to harm himself or others as well as any overt psychotic symptoms. ASSETS: Supportive family members. LIABILITIES: Limited insight. DIAGNOSTIC IMPRESSION: 1. Status post overdose. 2. Bipolar disorder, depressed phase. 3. Opiate use disorder. PLAN: At this time, the patient is appropriate for an inpatient psychiatric stay. He has had an overdose attempt to kill himself and is not very reassuring that he will not do this again. He does have a legitimate chronic mental illness and is in need of some significant pharmacologic adjustments. I am going to start him on lithium and would recommend that he be transferred to inpatient psychiatric care once medically stabilized. TRANSINT:[id number] Voice Confirmation ID: [id number] DOCUMENT ID: [id number] CONSULT REPORT [id number] MOLLY EDMONDSON PETER MD at 1528 CC: [id number] DICTATION DATE: 06/24/18 1152 HUMAN RESOURCES MANAGER MANUFACTURING: 06/24/18 1319 ADM IN [facility] [id number] [place] [address]
--- NOTE | 2018-06-25 17:21 | MORECARE ---
CASE MANAGEMENT DISCHARGE SUMMARY PATIENT: MOLLY EDMONDSON UNIT: [id number] ADM DATE: 06/23/18 AGE: 42 : [birth year] SEX: M ROOM/BED: D.2309 AUTHOR: GLADYS TAYLOR PHYSICIAN: REFERRING PHYSICIAN: SMITA LONG MD DATE OF SERVICE: 06/25/18 Discharge Plan Patient Name: MOLLY EDMONDSON [facility] [facility] 1975 Planned Disposition: Psych facility Anticipated Discharge Date: Discharge Date: Expected LOS: Initial Reviewer: [email or web address] Initial Review Date: 06/23/2018 Generated: 06/25/18 6:21 pm External Providers External Provider: [facility] Next Contact Date: Service Request Date: Service Type: Resolution: Reviewer: Comments: Patient Name: MOLLY EDMONDSON Page 98344 at 1721 All edits/amendments must be made on the electronic document DICTATION DATE: 06/25/181720 PANELBEATER: BOUCHRA 06/25/18 172 RPT#: [id number] DC DATE: STATUS: ADM IN [facility] [address] [place] [address] END OF REPORT
--- NOTE | 2018-06-25 17:31 | MORECARE ---
CASE MANAGEMENT DISCHARGE SUMMARY PATIENT: MOLLY EDMONDSON UNIT: [id number] ADM DATE: 06/23/18 AGE: 42 : [birth year] SEX: M ROOM/BED: D.2309 AUTHOR: GLADYS TAYLOR PHYSICIAN: REFERRING PHYSICIAN: SMITA LONG MD DATE OF SERVICE: 06/25/18 Discharge Plan Patient Name: MOLLY EDMONDSON [facility] [facility] 1975 Planned Disposition: Psych facility Anticipated Discharge Date: Discharge Date: Expected LOS: Initial Reviewer: [email or web address] Initial Review Date: 06/23/2018 Generated: 06/25/18 6:31 pm Comments DCP- Discharge Planning Updated by [email or web address]: Tamia Murphy on 06/25/18 4:[address] Awaiting placement for Inpatient Psychiatric Facility. records clerk faxed records to transfer center this am. CM called and checked with transfer center they are still awaiting placement has been denied at [facility] and [facility]. Still awaiting decision from other facilities. CM will continue to follow and assist as needed with discharge planning / needs. Last DP export: 06/25/18 4:21 p Patient Name: MOLLY EDMONDSON Page 59592 at 1731 All edits/amendments must be made on the electronic document DICTATION DATE: 06/25/181730 DOCUMENT ANALYST: BOUCHRA 06/25/181730 RPT#: [id number] DC DATE: STATUS: ADM IN [facility] [address] [place] [address] END OF REPORT
--- NOTE | 2018-06-25 19:30 | NUR ---
PATIENT REFUSED FOR V/S TO BE TAKE. PATEINT IS STABLE AND UP AT [place]. CALL LIGHT WITHIN REACH, BED IN LOW POSITION.
--- NOTE | 2018-06-25 23:00 | NUR ---
PATIENT WITH NO CHANGES IN CONDITION. REASSESSMENT COMPLETE. CALL LIGHT WITHIN REACH, BED IN LOW POSITION. PATIENT DENIES ANY NEEDS.
--- NOTE | 2018-06-26 03:00 | NUR ---
REASSESSMENT COMPLETE WITH NO CHANGES IN CONDITION, PATEINT IS IN GOOD STABLE CONDITION.
[2018-06-26 05:17] LABS: BASOPHILS 0.6 % (0-2); EOSINOPHILS 7.2 % (0-7); HEMATOCRIT 44.1 % (42.0-54.0); HEMOGLOBIN 15.2 g/dL (13.5-17.5); IMMATURE GRANULOCYTES 0.4 % (0-5); LYMPHOCYTES 36.7 % (15-50); MCH 30.5 pg (26.0-34.0); MCHC 34.5 g/dL (31.0-37.0); MCV 88.4 fL (80.0-100.0); MEAN PLATELET VOLUME 9.4 fL (7.4-10.4); MONOCYTES 7.9 % (2-11); NEUTROPHILS 47.2 % (40-80); PLATELET COUNT 185 10x3/uL (130-400); RBC 4.99 10x6/uL (4.20-6.10); RDW 12.6 % (11.5-14.5); WBC 6.8 10x3/uL (4.8-10.8)
--- NOTE | 2018-06-26 05:30 | NUR ---
PATIENT UP TO C VOIDED 2400ML OF CL YELLOW URINE. PATIENT IN GOOD STABLE CONDITION. CALL LIGHT WITHIN REACH.
[2018-06-26 05:48] LABS: CALC OSMOLALITY 281 mosm/kg (275-300); CALCIUM 8.9 mg/dL (8.5-10.1); CARBON DIOXIDE 29.5 mmol/L (21.0-32.0); CHLORIDE - SERUM 105 mmol/L (98-107); GLUCOSE 90 mg/dL (74-106); POTASSIUM - SERUM 4.6 mmol/L (3.5-5.1); SODIUM 140 mmol/L (136-145); eGFR NON AFRICAN AMERICAN 87 mL/min (90-120)
[2018-06-26 05:49] LABS: UREA NITROGEN 20 mg/dL (7-18)
[2018-06-26 07:00] VITALS: BP 128/90; BP 129/77
--- NOTE | 2018-06-26 07:00 | NUR ---
REC'D RPOERT AND RESUMED CARE, SLEEPING, WITH NO SIGNS OF DISTRESS, VSS, AROUSABLE TO VERBAL, ASSESSMENT COMPLETE PER FLOWSHEET, CALL LIGHT IN REACH, NO NEEDS A THIS TIME
--- NOTE | 2018-06-26 09:15 | NUR ---
MORNING MEDS GIVEN PER APR FLOWSHEET
[2018-06-26 11:00] VITALS: BP 125/76
--- NOTE | 2018-06-26 11:00 | NUR ---
SLEEPING, AROUSABLE TO VERBAL STIMULI, ON ACUTE CHANGE FROM PREVIOUS ASSESSMENT, VSS
--- NOTE | 2018-06-26 13:40 | NUR ---
DC'D TO [facility] AND STRETCHER, CALM AND COOPERATIVE AT THIS TIME
--- NOTE | 2018-06-26 18:13 | MORECARE ---
CASE MANAGEMENT DISCHARGE SUMMARY PATIENT: MOLLY EDMONDSON UNIT: [id number] ADM DATE: 06/23/18 AGE: 42 : 77 SEX: M ROOM/BED: D.2309 AUTHOR: GLADYS TAYLOR PHYSICIAN: REFERRING PHYSICIAN: SMITA LONG MD DATE OF SERVICE: 06/26/18 Discharge Plan Patient Name: MOLLY EDMONDSON [facility] [facility] 1975 Planned Disposition: Psych facility Anticipated Discharge Date: Discharge Date: 06/26/2018 Expected LOS: Initial Reviewer: [email or web address] Initial Review Date: 06/23/2018 Generated: 06/26/18 7:13 pm Comments DCP- Discharge Planning Updated by [email or web address]: Tamia Murphy on 06/25/18 4:[address] Awaiting placement for Inpatient Psychiatric Facility. delicatessen goods stock clerk faxed records to transfer center this am. CM called and checked with transfer center they are still awaiting placement has been denied at [facility] and [facility]. Still awaiting decision from other facilities. CM will continue to follow and assist as needed with discharge planning / needs. Last DP export: 06/25/18 4:31 p Patient Name: MOLLY EDMONDSON Page 14783 at 1813 All edits/amendments must be made on the electronic document DICTATION DATE: 06/26/181812 GI ASST: BOUCHRA 06/26/181812 RPT#: [id number] DC DATE:06/26/18 STATUS: DIS IN [facility] [address] [place] [address] END OF REPORT
== END 2018-06-26 13:40 ==
LOC: D.ER 16:27 → D.ICU 18:46 → OBSVTIME 18:46 → D.EDHOLD 18:46 → D.ICU 18:46
PROVIDERS: Family Medicine; ADMIT Internal Medicine Nephrology; ATTEND Internal Medicine Nephrology
DX: T42.6X2A Poisoning by other antiepileptic and sedative-hypnotic drugs, intentional self-harm, initial encounter (principal); R45.851 Suicidal ideations; E83.42 Hypomagnesemia; I10 Essential (primary) hypertension; F31.9 Bipolar disorder, unspecified; F17.203 Nicotine dependence unspecified, with withdrawal; K59.09 Other constipation; G89.29 Other chronic pain; F32.9 Major depressive disorder, single episode, unspecified

== ENCOUNTER 2018-08-15 16:48 | Emergency (ER) | payer MEDICAID ==
[~2018-08-15] VITALS: Ht 175.3 cm; Wt 100.0 kg
[~2018-08-15 16:48] MED LIST changes: +BUPRENORPHIN-N1 EACH SL; +KLONOPIN1 MG PO; +ZOLOFT50 MG PO; +ZYPREXA2.5 MG PO
[2018-08-15 16:57] VITALS: Ht 175.3 cm; Wt 100.0 kg
[2018-08-15 17:30] LABS: BASOPHILS 0.3 % (0-2); EOSINOPHILS 1.3 % (0-7); HEMATOCRIT 42.1 % (42.0-54.0); HEMOGLOBIN 14.7 g/dL (13.5-17.5); IMMATURE GRANULOCYTES 0.1 % (0-5); LYMPHOCYTES 34.4 % (15-50); MCH 30.4 pg (26.0-34.0); MCHC 34.9 g/dL (31.0-37.0); MCV 87.2 fL (80.0-100.0); MEAN PLATELET VOLUME 9.3 fL (7.4-10.4); MONOCYTES 6.7 % (2-11); NEUTROPHILS 57.2 % (40-80); PLATELET COUNT 236 10x3/uL (130-400); RBC 4.83 10x6/uL (4.20-6.10); RDW 13.4 % (11.5-14.5); WBC 6.8 10x3/uL (4.8-10.8)
[2018-08-15 17:49] LABS: ALBUMIN 3.9 g/dL (3.4-5.0); ALKALINE PHOSPHATASE 76 U/L (46-116); ALT (SGPT) 29 U/L (10-68); BILIRUBIN - TOTAL 0.36 mg/dL (0.2-1.3); CALC OSMOLALITY 289 mosm/kg (275-300); CALCIUM 8.9 mg/dL (8.5-10.1); CARBON DIOXIDE 25.5 mmol/L (21.0-32.0); CHLORIDE - SERUM 108 mmol/L (98-107); CREATININE - SERUM 1.2 mg/dL (0.6-1.3); GLUCOSE 89 mg/dL (74-106); POTASSIUM - SERUM 3.9 mmol/L (3.5-5.1); PROTEIN - SERUM 7.4 g/dL (6.4-8.2); SODIUM 146 mmol/L (136-145); UREA NITROGEN 13 mg/dL (7-18); eGFR NON AFRICAN AMERICAN 71 mL/min (90-120)
[2018-08-15 17:51] LABS: APTT 28.2 SECONDS (22.8-39.4); INR 0.94 (0.85-1.17); PROTIME 12.1 SECONDS (11.6-15.0)
[2018-08-15 18:00] LABS: CKMB 0.6 U/L (0.0-3.6); CREATINE KINASE 90 UL (21-232); THYROID STIMULATING HORMONE 1.86 uIU/mL (0.36-3.74)
[2018-08-15 18:02] LABS: TROPONIN-I < 0.017 ng/mL (0.000-0.060)
[2018-08-15 20:13] VITALS: BP 118/68
== END 2018-08-15 19:53 | disposition other institution (70) ==
LOC: D.ER 16:48
PROVIDERS: Family Medicine
DX: I63.9 Cerebral infarction, unspecified (principal); R29.810 Facial weakness; R47.1 Dysarthria and anarthria

== ENCOUNTER 2018-08-25 12:04 | Emergency (ER) | payer OTHER ==
[~2018-08-25] VITALS: Ht 175.3 cm; Wt 97.7 kg
[2018-08-25 12:07] VITALS: Ht 175.3 cm; Wt 97.7 kg
[2018-08-25 12:50] LABS: BASOPHILS 0.4 % (0-2); EOSINOPHILS 8.2 % (0-7); HEMATOCRIT 43.4 % (42.0-54.0); LYMPHOCYTES 28.7 % (15-50); MCH 30.4 pg (26.0-34.0); MCHC 34.6 g/dL (31.0-37.0); MCV 87.9 fL (80.0-100.0); MEAN PLATELET VOLUME 8.9 fL (7.4-10.4); MONOCYTES 8.4 % (2-11); NEUTROPHILS 53.3 % (40-80); PLATELET COUNT 209 10x3/uL (130-400); RBC 4.94 10x6/uL (4.20-6.10); RDW 13.1 % (11.5-14.5); WBC 6.8 10x3/uL (4.8-10.8)
[2018-08-25 12:57] LABS: APPEARANCE CLEAR (CLEAR); BILIRUBIN NEGATIVE (NEGATIVE); COLOR YELLOW (YELLOW); GLUCOSE NEGATIVE (NEGATIVE); KETONE NEGATIVE (NEGATIVE); NITRITE NEGATIVE (NEGATIVE); PROTEIN NEGATIVE (NEGATIVE); SPECIFIC GRAVITY 1.015 (1.005-1.020); UDS - AMPHET NEGATIVE QUAL (NEGATIVE); UDS - BARB NEGATIVE QUAL (NEGATIVE); UDS - BENZO NEGATIVE QUAL (NEGATIVE); UDS - COCAINE NEGATIVE QUAL (NEGATIVE); UDS - OPIATE NEGATIVE QUAL (NEGATIVE); UDS - PCP NEGATIVE QUAL (NEGATIVE); UDS - THC NEGATIVE QUAL (NEGATIVE); UROBILINOGEN NORMAL (NORMAL)
[2018-08-25 13:08] LABS: ALBUMIN 3.4 g/dL (3.4-5.0); ALKALINE PHOSPHATASE 89 U/L (46-116); ALT (SGPT) 36 U/L (10-68); BILIRUBIN - TOTAL 0.32 mg/dL (0.2-1.3); CALC OSMOLALITY 279 mosm/kg (275-300); CALCIUM 9.3 mg/dL (8.5-10.1); CARBON DIOXIDE 25.5 mmol/L (21.0-32.0); CHLORIDE - SERUM 103 mmol/L (98-107); CREATININE - SERUM 0.9 mg/dL (0.6-1.3); GLUCOSE 112 mg/dL (74-106); PROTEIN - SERUM 6.7 g/dL (6.4-8.2); SODIUM 138 mmol/L (136-145); UREA NITROGEN 20 mg/dL (7-18); eGFR NON AFRICAN AMERICAN > 90 mL/min (90-120)
--- NOTE | 2018-08-25 14:11 | NUR ---
DR. JETT NOTIFIED AND 1:1 SITTER OBSERVATION ORDERED. SITTER AT BEDSIDE. NOTIFIED CHARGE NURSEAND ATTENDING IN REGARDS TO ASSESSMENT FINDINGS. RESOURCES GIVEN TO PT AND SAFETY PLAN INTIATED.
[2018-08-25 19:00] VITALS: BP 136/78
== END 2018-08-25 21:12 ==
LOC: D.ER 12:04
PROVIDERS: Family Medicine
DX: R45.851 Suicidal ideations (principal); R44.0 Auditory hallucinations; R51 Headache; F32.9 Major depressive disorder, single episode, unspecified

== ENCOUNTER 2018-09-10 08:25 | Emergency (ER) | payer OTHER ==
[~2018-09-10] VITALS: Ht 175.3 cm; Wt 99.5 kg
[2018-09-10 08:29] VITALS: BP 141/90; Ht 175.3 cm; Wt 99.5 kg
[2018-09-10 08:45] LABS: APPEARANCE CLEAR (CLEAR); BILIRUBIN NEGATIVE (NEGATIVE); COLOR YELLOW (YELLOW); GLUCOSE NEGATIVE (NEGATIVE); KETONE NEGATIVE (NEGATIVE); NITRITE NEGATIVE (NEGATIVE); PROTEIN NEGATIVE (NEGATIVE); SPECIFIC GRAVITY 1.015 (1.005-1.020); UROBILINOGEN NORMAL (NORMAL)
[2018-09-10 08:56] LABS: UDS - AMPHET NEGATIVE QUAL (NEGATIVE); UDS - BARB NEGATIVE QUAL (NEGATIVE); UDS - BENZO NEGATIVE QUAL (NEGATIVE); UDS - COCAINE NEGATIVE QUAL (NEGATIVE); UDS - OPIATE NEGATIVE QUAL (NEGATIVE); UDS - PCP NEGATIVE QUAL (NEGATIVE); UDS - THC POSITIVE QUAL (NEGATIVE)
[2018-09-10 09:13] LABS: BASOPHILS 0.2 % (0-2); EOSINOPHILS 6.8 % (0-7); HEMATOCRIT 35.4 % (42.0-54.0); HEMOGLOBIN 12.1 g/dL (13.5-17.5); IMMATURE GRANULOCYTES 0.4 % (0-5); LYMPHOCYTES 32.3 % (15-50); MCH 29.7 pg (26.0-34.0); MCHC 34.2 g/dL (31.0-37.0); MCV 86.8 fL (80.0-100.0); MEAN PLATELET VOLUME 8.3 fL (7.4-10.4); MONOCYTES 8.8 % (2-11); NEUTROPHILS 51.5 % (40-80); PLATELET COUNT 173 10x3/uL (130-400); RBC 4.08 10x6/uL (4.20-6.10); RDW 12.8 % (11.5-14.5)
--- NOTE | 2018-09-10 09:22 | NUR ---
DR. JETT NOTIFIED AND SITTER ORDERED. SITTER AT BEDSIDE. NOTIFIED CHARGE NURSE AND ATTENDING IN REGARDS TO ASSESSMENT FINDINGS. RESOURCES GIVEN TO PT AND SAFETY PLAN INITIATED.
[2018-09-10 09:25] LABS: ALBUMIN 3.2 g/dL (3.4-5.0); ALKALINE PHOSPHATASE 91 U/L (46-116); ALT (SGPT) 25 U/L (10-68); BILIRUBIN - TOTAL 0.24 mg/dL (0.2-1.3); CALC OSMOLALITY 278 mosm/kg (275-300); CALCIUM 8.4 mg/dL (8.5-10.1); CARBON DIOXIDE 29.2 mmol/L (21.0-32.0); CHLORIDE - SERUM 106 mmol/L (98-107); CREATININE - SERUM 0.8 mg/dL (0.6-1.3); GLUCOSE 93 mg/dL (74-106); MAGNESIUM - SERUM 1.8 mg/dL (1.8-2.4); POTASSIUM - SERUM 3.8 mmol/L (3.5-5.1); PROTEIN - SERUM 6.5 g/dL (6.4-8.2); SODIUM 140 mmol/L (136-145); UREA NITROGEN 12 mg/dL (7-18); eGFR NON AFRICAN AMERICAN > 90 mL/min (90-120)
== END 2018-09-10 12:52 ==
LOC: D.ER 08:25
PROVIDERS: Family Medicine
DX: R45.851 Suicidal ideations (principal); R44.0 Auditory hallucinations; J01.90 Acute sinusitis, unspecified

== ENCOUNTER 2018-09-30 07:42 | Emergency (ER) | payer OTHER ==
[~2018-09-30] VITALS: Ht 175.3 cm; Wt 100.0 kg
[2018-09-30 07:45] VITALS: Ht 175.3 cm; Wt 100.0 kg
[2018-09-30 08:15] LABS: BASOPHILS 0.1 % (0-2); EOSINOPHILS 1.5 % (0-7); HEMATOCRIT 39.5 % (42.0-54.0); HEMOGLOBIN 13.9 g/dL (13.5-17.5); IMMATURE GRANULOCYTES 0.8 % (0-5); LYMPHOCYTES 14.8 % (15-50); MCH 30.3 pg (26.0-34.0); MCHC 35.2 g/dL (31.0-37.0); MCV 86.2 fL (80.0-100.0); MEAN PLATELET VOLUME 8.8 fL (7.4-10.4); MONOCYTES 5.6 % (2-11); NEUTROPHILS 77.2 % (40-80); RBC 4.58 10x6/uL (4.20-6.10); RDW 13.3 % (11.5-14.5); WBC 10.4 10x3/uL (4.8-10.8)
[2018-09-30 08:29] LABS: PLATELET COUNT 250 10x3/uL (130-400)
[2018-09-30 08:34] LABS: INR 1.07 (0.85-1.17); PROTIME 13.4 SECONDS (11.6-15.0)
[2018-09-30 08:38] LABS: ALBUMIN 3.8 g/dL (3.4-5.0); ALKALINE PHOSPHATASE 96 U/L (46-116); ALT (SGPT) 21 U/L (10-68); BILIRUBIN - TOTAL 0.52 mg/dL (0.2-1.3); CALC OSMOLALITY 280 mosm/kg (275-300); CALCIUM 8.9 mg/dL (8.5-10.1); CARBON DIOXIDE 22.8 mmol/L (21.0-32.0); CHLORIDE - SERUM 105 mmol/L (98-107); CREATININE - SERUM 1.1 mg/dL (0.6-1.3); GLUCOSE 125 mg/dL (74-106); POTASSIUM - SERUM 3.6 mmol/L (3.5-5.1); PROTEIN - SERUM 7.5 g/dL (6.4-8.2); SODIUM 141 mmol/L (136-145); UREA NITROGEN 11 mg/dL (7-18); eGFR NON AFRICAN AMERICAN 78 mL/min (90-120)
[2018-09-30] MEDS ORDERED: PROTONIX40 MG PO ×2 (09:22→09:24)
[2018-09-30] MEDS ORDERED: PERCOCET 5-3251 TAB PO ×2 (09:22→09:24)
[2018-09-30 09:36] VITALS: BP 125/81
== END 2018-09-30 09:38 | disposition home or self-care (01) ==
LOC: D.ER 07:42
PROVIDERS: Emergency Medicine
DX: K92.2 Gastrointestinal hemorrhage, unspecified (principal)

== ENCOUNTER 2018-10-10 07:44 | Emergency (ER) | payer OTHER ==
[~2018-10-10] VITALS: Ht 175.3 cm; Wt 97.7 kg
[~2018-10-10 07:44] MED LIST changes: +PERCOCET 5-3251 TAB PO
[2018-10-10 07:56] VITALS: Ht 175.3 cm; Wt 97.7 kg
[2018-10-10 08:34] LABS: BASOPHILS 0.2 % (0-2); EOSINOPHILS 1.8 % (0-7); HEMATOCRIT 41.3 % (42.0-54.0); HEMOGLOBIN 14.5 g/dL (13.5-17.5); IMMATURE GRANULOCYTES 0.3 % (0-5); LYMPHOCYTES 15.3 % (15-50); MCH 30.5 pg (26.0-34.0); MCHC 35.1 g/dL (31.0-37.0); MCV 86.9 fL (80.0-100.0); MEAN PLATELET VOLUME 8.9 fL (7.4-10.4); MONOCYTES 5.3 % (2-11); NEUTROPHILS 77.1 % (40-80); PLATELET COUNT 219 10x3/uL (130-400); RBC 4.75 10x6/uL (4.20-6.10); RDW 13.6 % (11.5-14.5); WBC 10.2 10x3/uL (4.8-10.8)
[2018-10-10 09:01] LABS: ALBUMIN 4.1 g/dL (3.4-5.0); ALKALINE PHOSPHATASE 94 U/L (46-116); ALT (SGPT) 16 U/L (10-68); BILIRUBIN - TOTAL 0.22 mg/dL (0.2-1.3); CALC OSMOLALITY 285 mosm/kg (275-300); CALCIUM 9.4 mg/dL (8.5-10.1); CARBON DIOXIDE 22.1 mmol/L (21.0-32.0); CHLORIDE - SERUM 106 mmol/L (98-107); CREATININE - SERUM 1.3 mg/dL (0.6-1.3); GLUCOSE 92 mg/dL (74-106); POTASSIUM - SERUM 4.8 mmol/L (3.5-5.1); PROTEIN - SERUM 7.4 g/dL (6.4-8.2); SODIUM 142 mmol/L (136-145); UREA NITROGEN 21 mg/dL (7-18); eGFR NON AFRICAN AMERICAN 65 mL/min (90-120)
[2018-10-10 09:05] LABS: APPEARANCE CLEAR (CLEAR); COLOR YELLOW (YELLOW)
[2018-10-10 09:05] LABS: AMYLASE - SERUM 62 U/L (25-115); LIPASE 77 U/L (73-393)
[2018-10-10 09:06] LABS: BILIRUBIN NEGATIVE (NEGATIVE); GLUCOSE NEGATIVE (NEGATIVE); KETONE NEGATIVE (NEGATIVE); NITRITE NEGATIVE (NEGATIVE); PROTEIN NEGATIVE (NEGATIVE); SPECIFIC GRAVITY 1.015 (1.005-1.020); UROBILINOGEN NORMAL (NORMAL)
[2018-10-10 09:08] LABS: TROPONIN-I < 0.017 ng/mL (0.000-0.060)
[2018-10-10] MEDS ORDERED: PHENERGAN25 MG RC (09:38)
[2018-10-10] MEDS ORDERED: LOMOTIL 2.5-0.1 EAC1 PO (09:38)
[2018-10-10 11:29] VITALS: BP 132/70
== END 2018-10-10 11:31 | disposition home or self-care (01) ==
LOC: D.ER 07:44
PROVIDERS: Emergency Medicine
DX: R11.10 Vomiting, unspecified (principal); R10.9 Unspecified abdominal pain; R19.7 Diarrhea, unspecified; F17.213 Nicotine dependence, cigarettes, with withdrawal

== ENCOUNTER 2018-10-12 05:00 | Emergency (ER) | payer OTHER ==
[~2018-10-12] VITALS: Ht 175.3 cm; Wt 97.7 kg
[~2018-10-12 05:00] MED LIST changes: +LOMOTIL 2.5-0.1 EAC1 PO; +PHENERGAN25 MG RC
[2018-10-12 05:01] VITALS: Ht 175.3 cm; Wt 97.7 kg
[2018-10-12] MEDS ORDERED: BAYER CHEWABLE81 MG PO (05:07)
[2018-10-12 05:35] LABS: UDS - AMPHET NEGATIVE QUAL (NEGATIVE); UDS - BARB NEGATIVE QUAL (NEGATIVE); UDS - BENZO POSITIVE QUAL (NEGATIVE); UDS - COCAINE NEGATIVE QUAL (NEGATIVE); UDS - OPIATE NEGATIVE QUAL (NEGATIVE); UDS - PCP NEGATIVE QUAL (NEGATIVE); UDS - THC POSITIVE QUAL (NEGATIVE)
[2018-10-12 05:44] LABS: APPEARANCE HAZY (CLEAR); BILIRUBIN NEGATIVE (NEGATIVE); COLOR YELLOW (YELLOW); GLUCOSE NEGATIVE (NEGATIVE); KETONE SMALL mg/dL (NEGATIVE); NITRITE NEGATIVE (NEGATIVE); PROTEIN NEGATIVE (NEGATIVE); UROBILINOGEN NORMAL (NORMAL)
[2018-10-12 05:45] LABS: BACTERIA NONE SEEN /hpf (NONE SEEN); EPITHELIAL CELLS 0-5 /hpf (0-5); WHITE CELLS - URINE OCC /hpf (0-5)
[2018-10-12 06:34] LABS: BASOPHILS 0.5 % (0-2); EOSINOPHILS 4.5 % (0-7); HEMATOCRIT 39.3 % (42.0-54.0); HEMOGLOBIN 13.5 g/dL (13.5-17.5); IMMATURE GRANULOCYTES 0.3 % (0-5); LYMPHOCYTES 18.6 % (15-50); MCH 30.1 pg (26.0-34.0); MCHC 34.4 g/dL (31.0-37.0); MCV 87.7 fL (80.0-100.0); MEAN PLATELET VOLUME 8.8 fL (7.4-10.4); MONOCYTES 5.4 % (2-11); NEUTROPHILS 70.7 % (40-80); PLATELET COUNT 201 10x3/uL (130-400); RBC 4.48 10x6/uL (4.20-6.10); RDW 13.4 % (11.5-14.5)
[2018-10-12 06:40] LABS: WBC 7.6 10x3/uL (4.8-10.8)
[2018-10-12 06:46] LABS: ALBUMIN 3.7 g/dL (3.4-5.0); ALKALINE PHOSPHATASE 89 U/L (46-116); ALT (SGPT) 18 U/L (10-68); BILIRUBIN - TOTAL 0.41 mg/dL (0.2-1.3); CALC OSMOLALITY 284 mosm/kg (275-300); CALCIUM 8.7 mg/dL (8.5-10.1); CARBON DIOXIDE 24.3 mmol/L (21.0-32.0); CHLORIDE - SERUM 108 mmol/L (98-107); CREATININE - SERUM 1.1 mg/dL (0.6-1.3); GLUCOSE 104 mg/dL (74-106); POTASSIUM - SERUM 4.4 mmol/L (3.5-5.1); PROTEIN - SERUM 6.9 g/dL (6.4-8.2); SODIUM 142 mmol/L (136-145); UREA NITROGEN 17 mg/dL (7-18); eGFR NON AFRICAN AMERICAN 78 mL/min (90-120)
[2018-10-12 06:52] LABS: LIPASE 102 U/L (73-393)
[2018-10-12 06:54] LABS: TROPONIN-I < 0.017 ng/mL (0.000-0.060)
[2018-10-12 07:17] LABS: PRO BNP 23 pg/mL (0-125); THYROID STIMULATING HORMONE 0.97 uIU/mL (0.36-3.74)
[2018-10-12 08:06] VITALS: BP 144/83
== END 2018-10-12 08:07 | disposition home or self-care (01) ==
LOC: D.ER 05:00
PROVIDERS: Family Medicine
DX: R10.30 Lower abdominal pain, unspecified (principal)

== ENCOUNTER 2018-10-23 18:38 | Emergency (ER) | payer OTHER ==
[~2018-10-23] VITALS: Ht 175.3 cm; Wt 101.6 kg
[~2018-10-23 18:38] MED LIST changes: +BAYER CHEWABLE81 MG PO
[2018-10-23 18:41] VITALS: Ht 175.3 cm; Wt 101.6 kg
--- NOTE | 2018-10-23 19:01 | NUR ---
DR JETT NOTIFIED AND REVIEWED PT'S BEHAVIOR AND ASSESSMENT RESULTS. PT IS A LOW RISK PER DR JETT. DR JETT STATED TO GIVE RESOURCES TO PT AT TIME OF DISCHARGE. NO FURTHER ORDERS AT THIS TIME. RESOURCES REVIEWED WITH PT AND HE VERBALIZED UNDERSTANDING. PATIENT VEHEMENTLY DENIES SUICIDAL IDEATIONS AND IS ABLE TO STATE REASONS FOR LIVING. PT EXHIBITS PLEASANT MOO. NO S/S DISTRESS.
[2018-10-23] MEDS ORDERED: IBUPROFEN800 MG PO (19:18)
[2018-10-23 20:09] VITALS: BP 146/87
== END 2018-10-23 20:10 | disposition home or self-care (01) ==
LOC: D.ER 18:38
DX: M54.16 Radiculopathy, lumbar region (principal)

== ENCOUNTER 2018-10-26 10:13 | Emergency (ER) | payer OTHER ==
[~2018-10-26] VITALS: Ht 175.3 cm; Wt 100.0 kg
[~2018-10-26 10:13] MED LIST changes: +IBUPROFEN800 MG PO
[2018-10-26 10:23] VITALS: Ht 175.3 cm; Wt 100.0 kg
--- NOTE | 2018-10-26 10:57 | NUR ---
According to the suicide assessment, the patient will require a 1:1 observation.
[2018-10-26 10:58] LABS: BASOPHILS 0.5 % (0-2); EOSINOPHILS 6.2 % (0-7); HEMATOCRIT 39.2 % (42.0-54.0); HEMOGLOBIN 13.4 g/dL (13.5-17.5); IMMATURE GRANULOCYTES 0.7 % (0-5); LYMPHOCYTES 25.8 % (15-50); MCH 30.7 pg (26.0-34.0); MCHC 34.2 g/dL (31.0-37.0); MCV 89.9 fL (80.0-100.0); MEAN PLATELET VOLUME 8.9 fL (7.4-10.4); MONOCYTES 9.9 % (2-11); NEUTROPHILS 56.9 % (40-80); PLATELET COUNT 207 10x3/uL (130-400); RBC 4.36 10x6/uL (4.20-6.10); RDW 13.4 % (11.5-14.5); WBC 8.6 10x3/uL (4.8-10.8)
[2018-10-26 11:15] LABS: ALBUMIN 3.5 g/dL (3.4-5.0); ALKALINE PHOSPHATASE 85 U/L (46-116); ALT (SGPT) 24 U/L (10-68); BILIRUBIN - TOTAL 0.17 mg/dL (0.2-1.3); CALC OSMOLALITY 282 mosm/kg (275-300); CALCIUM 8.9 mg/dL (8.5-10.1); CARBON DIOXIDE 31.1 mmol/L (21.0-32.0); CHLORIDE - SERUM 105 mmol/L (98-107); CREATININE - SERUM 1.1 mg/dL (0.6-1.3); GLUCOSE 87 mg/dL (74-106); POTASSIUM - SERUM 4.5 mmol/L (3.5-5.1); PROTEIN - SERUM 6.8 g/dL (6.4-8.2); SODIUM 142 mmol/L (136-145); UREA NITROGEN 14 mg/dL (7-18); eGFR NON AFRICAN AMERICAN 78 mL/min (90-120)
[2018-10-26 11:17] VITALS: BP 118/71
[2018-10-26 11:26] LABS: AMYLASE - SERUM 40 U/L (25-115); CKMB 0.1 U/L (0.0-3.6); CREATINE KINASE 25 UL (21-232); LIPASE 53 U/L (73-393); MAGNESIUM - SERUM 1.8 mg/dL (1.8-2.4); TROPONIN-I < 0.017 ng/mL (0.000-0.060)
[2018-10-26 11:34] LABS: APTT 27.2 SECONDS (22.8-39.4); INR 0.91 (0.85-1.17); PROTIME 11.8 SECONDS (11.6-15.0)
[2018-10-26 12:16] LABS: UDS - AMPHET NEGATIVE QUAL (NEGATIVE); UDS - BARB NEGATIVE QUAL (NEGATIVE); UDS - BENZO POSITIVE QUAL (NEGATIVE); UDS - COCAINE NEGATIVE QUAL (NEGATIVE); UDS - OPIATE NEGATIVE QUAL (NEGATIVE); UDS - PCP NEGATIVE QUAL (NEGATIVE); UDS - THC NEGATIVE QUAL (NEGATIVE)
[2018-10-26 12:23] LABS: APPEARANCE CLEAR (CLEAR); BILIRUBIN NEGATIVE (NEGATIVE); COLOR YELLOW (YELLOW); GLUCOSE NEGATIVE (NEGATIVE); KETONE NEGATIVE (NEGATIVE); NITRITE NEGATIVE (NEGATIVE); PROTEIN NEGATIVE (NEGATIVE); SPECIFIC GRAVITY 1.015 (1.005-1.020); UROBILINOGEN NORMAL (NORMAL)
[2018-10-26] MEDS ORDERED: ZYPREXA5 MG PO ×2 (13:35→13:36)
[2018-10-26] MEDS ORDERED: PROPRANOLOL HCL20 MG PO (13:38)
[2018-10-26] MEDS ORDERED: TRAZODONE HCL150 MG PO (13:41)
[2018-10-26] MEDS ORDERED: ZOLOFT100 MG PO (13:42)
[2018-10-26] MEDS ORDERED: BUPRENORPHIN-N1 EACH SL (13:43)
== END 2018-10-26 18:00 ==
LOC: D.ER 10:13
PROVIDERS: Family Medicine
DX: R45.851 Suicidal ideations (principal); R07.9 Chest pain, unspecified; K21.9 Gastro-esophageal reflux disease without esophagitis

== ENCOUNTER 2018-11-27 17:22 | Emergency (ER) | payer MEDICAID ==
[~2018-11-27] VITALS: Ht 175.3 cm; Wt 100.0 kg
[~2018-11-27 17:22] MED LIST changes: +PROPRANOLOL HCL20 MG PO; +ZOLOFT100 MG PO; +ZYPREXA5 MG PO
[2018-11-27 17:27] VITALS: BP 138/89; Ht 175.3 cm; Wt 100.0 kg
[2018-11-27 17:50] LABS: APPEARANCE CLEAR (CLEAR); BILIRUBIN NEGATIVE (NEGATIVE); COLOR STRAW (YELLOW); GLUCOSE NEGATIVE (NEGATIVE); KETONE NEGATIVE (NEGATIVE); NITRITE NEGATIVE (NEGATIVE); PROTEIN NEGATIVE (NEGATIVE); UROBILINOGEN NORMAL (NORMAL)
[2018-11-27 17:57] LABS: BASOPHILS 0.5 % (0-2); HEMOGLOBIN 13.6 g/dL (13.5-17.5); IMMATURE GRANULOCYTES 0.5 % (0-5); LYMPHOCYTES 27.2 % (15-50); MCH 30.1 pg (26.0-34.0); MCV 88.5 fL (80.0-100.0); MEAN PLATELET VOLUME 8.6 fL (7.4-10.4); MONOCYTES 7.3 % (2-11); NEUTROPHILS 61.5 % (40-80); PLATELET COUNT 273 10x3/uL (130-400); RBC 4.52 10x6/uL (4.20-6.10); RDW 13.5 % (11.5-14.5); WBC 6.6 10x3/uL (4.8-10.8)
[2018-11-27 18:09] LABS: UDS - AMPHET NEGATIVE QUAL (NEGATIVE); UDS - BARB NEGATIVE QUAL (NEGATIVE); UDS - BENZO NEGATIVE QUAL (NEGATIVE); UDS - COCAINE NEGATIVE QUAL (NEGATIVE); UDS - OPIATE NEGATIVE QUAL (NEGATIVE); UDS - PCP NEGATIVE QUAL (NEGATIVE); UDS - THC NEGATIVE QUAL (NEGATIVE)
[2018-11-27 18:23] LABS: ALBUMIN 3.8 g/dL (3.4-5.0); ALKALINE PHOSPHATASE 90 U/L (46-116); ALT (SGPT) 25 U/L (10-68); CALC OSMOLALITY 278 mosm/kg (275-300); CALCIUM 8.9 mg/dL (8.5-10.1); CARBON DIOXIDE 26.5 mmol/L (21.0-32.0); CHLORIDE - SERUM 105 mmol/L (98-107); GLUCOSE 90 mg/dL (74-106); POTASSIUM - SERUM 3.6 mmol/L (3.5-5.1); PROTEIN - SERUM 7.3 g/dL (6.4-8.2); SODIUM 141 mmol/L (136-145); UREA NITROGEN 8 mg/dL (7-18); eGFR NON AFRICAN AMERICAN 87 mL/min (90-120)
[2018-11-27 19:01] LABS: AMYLASE - SERUM 61 U/L (25-115); LIPASE 105 U/L (73-393)
== END 2018-11-27 19:33 | disposition home or self-care (01) ==
LOC: D.ER 17:22
PROVIDERS: Family Medicine
DX: R55 Syncope and collapse (principal); R51 Headache

== ENCOUNTER 2019-01-11 09:51 | Emergency (ER) | payer MEDICAID ==
[~2019-01-11] VITALS: Ht 175.3 cm; Wt 99.8 kg
[2019-01-11 10:35] VITALS: Ht 175.3 cm; Wt 99.8 kg
[2019-01-11 10:43] LABS: HEMATOCRIT 42.4 % (42.0-54.0); HEMOGLOBIN 14.5 g/dL (13.5-17.5); LYMPHOCYTES 24.3 % (15-50); MCH 30.1 pg (26.0-34.0); MCHC 34.2 g/dL (31.0-37.0); MEAN PLATELET VOLUME 8.7 fL (7.4-10.4); NEUTROPHILS 71.9 % (40-80); PLATELET COUNT 224 10x3/uL (130-400); RBC 4.82 10x6/uL (4.20-6.10); RDW 13.4 % (11.5-14.5); WBC 6.8 10x3/uL (4.8-10.8)
[2019-01-11 10:49] LABS: CALC OSMOLALITY 288 mosm/kg (275-300); CALCIUM 9.1 mg/dL (8.5-10.1); CARBON DIOXIDE 28.6 mmol/L (21.0-32.0); CHLORIDE - SERUM 107 mmol/L (98-107); CREATININE - SERUM 0.9 mg/dL (0.6-1.3); GLUCOSE 111 mg/dL (74-106); SODIUM 144 mmol/L (136-145); UREA NITROGEN 14 mg/dL (7-18); eGFR NON AFRICAN AMERICAN > 90 mL/min (90-120)
[2019-01-11 10:51] LABS: APTT 28.7 SECONDS (22.8-39.4); INR 0.94 (0.85-1.17); PROTIME 12.1 SECONDS (11.6-15.0)
[2019-01-11 10:55] LABS: ALBUMIN 3.5 g/dL (3.4-5.0); ALKALINE PHOSPHATASE 106 U/L (46-116); ALT (SGPT) 25 U/L (10-68); AMYLASE - SERUM 56 U/L (25-115); BILIRUBIN - TOTAL 0.21 mg/dL (0.2-1.3); LIPASE 91 U/L (73-393); PROTEIN - SERUM 6.8 g/dL (6.4-8.2)
[2019-01-11 11:47] VITALS: BP 160/95
[2019-01-11] MEDS ORDERED: PHENERGAN25 M1 PO (13:06)
[2019-01-11] MEDS ORDERED: BENTYL10 MG PO (13:06)
== END 2019-01-11 14:20 | disposition home or self-care (01) ==
LOC: D.ER 09:51
PROVIDERS: Family Medicine
DX: R10.9 Unspecified abdominal pain (principal); Z87.19 Personal history of other diseases of the digestive system; K58.9 Irritable bowel syndrome, unspecified; R11.2 Nausea with vomiting, unspecified; Q42.8 Congenital absence, atresia and stenosis of other parts of large intestine

== ENCOUNTER 2019-01-14 06:05 | Emergency (ER) | payer MEDICAID ==
[~2019-01-14] VITALS: Ht 175.3 cm; Wt 100.0 kg
[~2019-01-14 06:05] MED LIST changes: +BENTYL10 MG PO
[2019-01-14 06:06] VITALS: Ht 175.3 cm; Wt 100.0 kg
[2019-01-14 06:54] LABS: BASOPHILS 0.2 % (0-2); EOSINOPHILS 1.6 % (0-7); HEMATOCRIT 45.9 % (42.0-54.0); HEMOGLOBIN 15.7 g/dL (13.5-17.5); IMMATURE GRANULOCYTES 0.3 % (0-5); LYMPHOCYTES 13.5 % (15-50); MCH 30.8 pg (26.0-34.0); MCHC 34.2 g/dL (31.0-37.0); MEAN PLATELET VOLUME 9.4 fL (7.4-10.4); MONOCYTES 4.4 % (2-11); PLATELET COUNT 243 10x3/uL (130-400); RDW 13.2 % (11.5-14.5); WBC 15.1 10x3/uL (4.8-10.8)
[2019-01-14] MEDS ORDERED: TYLENOL W/CODEI1 TAB PO (07:05)
[2019-01-14 07:29] VITALS: BP 128/89
== END 2019-01-14 07:30 | disposition home or self-care (01) ==
LOC: D.ER 06:05
PROVIDERS: Emergency Medicine
DX: R10.33 Periumbilical pain (principal); K57.91 Diverticulosis of intestine, part unspecified, without perforation or abscess with bleeding; Z86.73 Personal history of transient ischemic attack (TIA), and cerebral infarction without residual deficits; R11.2 Nausea with vomiting, unspecified; R19.7 Diarrhea, unspecified

== ENCOUNTER 2019-01-26 13:48 | Emergency (ER) | payer MEDICAID ==
[~2019-01-26] VITALS: Ht 175.3 cm; Wt 102.3 kg
[~2019-01-26 13:48] MED LIST changes: +TYLENOL W/CODEI1 TAB PO
[2019-01-26 13:49] VITALS: Ht 175.3 cm; Wt 102.3 kg
[2019-01-26 16:40] VITALS: BP 120/80
== END 2019-01-26 16:40 | disposition home or self-care (01) ==
LOC: D.ER 13:48
DX: M54.5 Low back pain (principal); W18.09XA Striking against other object with subsequent fall, initial encounter; Y93.9 Activity, unspecified; Y92.9 Unspecified place or not applicable; Z86.73 Personal history of transient ischemic attack (TIA), and cerebral infarction without residual deficits

== ENCOUNTER 2019-01-27 00:08 | Emergency (ER) | payer MEDICAID ==
[~2019-01-27] VITALS: Ht 175.3 cm; Wt 104.5 kg
[2019-01-27 00:19] VITALS: Ht 175.3 cm; Wt 104.5 kg
[2019-01-27 00:30] LABS: BASOPHILS 0.5 % (0-2); EOSINOPHILS 4.6 % (0-7); HEMATOCRIT 41.3 % (42.0-54.0); HEMOGLOBIN 13.7 g/dL (13.5-17.5); IMMATURE GRANULOCYTES 0.6 % (0-5); LYMPHOCYTES 30.4 % (15-50); MCH 30.4 pg (26.0-34.0); MCHC 33.2 g/dL (31.0-37.0); MCV 91.6 fL (80.0-100.0); MEAN PLATELET VOLUME 8.8 fL (7.4-10.4); MONOCYTES 6.8 % (2-11); NEUTROPHILS 57.1 % (40-80); PLATELET COUNT 179 10x3/uL (130-400); RBC 4.51 10x6/uL (4.20-6.10); RDW 13.5 % (11.5-14.5); WBC 7.8 10x3/uL (4.8-10.8)
[2019-01-27 00:36] LABS: APPEARANCE CLEAR (CLEAR); BILIRUBIN NEGATIVE (NEGATIVE); COLOR YELLOW (YELLOW); GLUCOSE NEGATIVE (NEGATIVE); KETONE NEGATIVE (NEGATIVE); NITRITE NEGATIVE (NEGATIVE); PROTEIN NEGATIVE (NEGATIVE); UROBILINOGEN NORMAL (NORMAL)
[2019-01-27 00:38] LABS: CALC OSMOLALITY 278 mosm/kg (275-300); CALCIUM 8.6 mg/dL (8.5-10.1); CARBON DIOXIDE 24.5 mmol/L (21.0-32.0); CHLORIDE - SERUM 105 mmol/L (98-107); GLUCOSE 94 mg/dL (74-106); POTASSIUM - SERUM 3.9 mmol/L (3.5-5.1); SODIUM 141 mmol/L (136-145); UREA NITROGEN 6 mg/dL (7-18); eGFR NON AFRICAN AMERICAN 87 mL/min (90-120)
[2019-01-27 00:42] LABS: UDS - AMPHET NEGATIVE QUAL (NEGATIVE); UDS - BARB NEGATIVE QUAL (NEGATIVE); UDS - BENZO POSITIVE QUAL (NEGATIVE); UDS - COCAINE NEGATIVE QUAL (NEGATIVE); UDS - OPIATE NEGATIVE QUAL (NEGATIVE); UDS - PCP NEGATIVE QUAL (NEGATIVE); UDS - THC POSITIVE QUAL (NEGATIVE)
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
[2019-01-27 00:47] LABS: ALBUMIN 3.2 g/dL (3.4-5.0); ALKALINE PHOSPHATASE 87 U/L (46-116); ALT (SGPT) 21 U/L (10-68); BILIRUBIN - TOTAL 0.26 mg/dL (0.2-1.3); PROTEIN - SERUM 6.6 g/dL (6.4-8.2); TROPONIN-I < 0.017 ng/mL (0.000-0.060)
[2019-01-27 03:54] VITALS: BP 118/72
== END 2019-01-27 04:30 ==
LOC: D.ER 00:08
PROVIDERS: Emergency Medicine
DX: R45.851 Suicidal ideations (principal); F32.9 Major depressive disorder, single episode, unspecified; F19.11 Other psychoactive substance abuse, in remission; R45.850 Homicidal ideations; R44.0 Auditory hallucinations

== ENCOUNTER 2019-01-31 00:19 | Emergency (ER) | payer MEDICAID ==
[~2019-01-31] VITALS: Ht 175.3 cm; Wt 100.0 kg
[2019-01-31 00:20] VITALS: BP 166/106; Ht 175.3 cm; Wt 100.0 kg
[2019-01-31] MEDS ORDERED: BUSPAR10 MG PO (00:25)
[2019-01-31] MEDS ORDERED: AMBIEN10 MG PO (00:26)
[2019-01-31 00:56] LABS: HEMATOCRIT 41.4 % (42.0-54.0); HEMOGLOBIN 14.1 g/dL (13.5-17.5); LYMPHOCYTES 30.1 % (15-50); MCH 30.4 pg (26.0-34.0); MCHC 34.1 g/dL (31.0-37.0); MCV 89.2 fL (80.0-100.0); MEAN PLATELET VOLUME 7.7 fL (7.4-10.4); NEUTROPHILS 64.7 % (40-80); RBC 4.64 10x6/uL (4.20-6.10); RDW 13.8 % (11.5-14.5)
[2019-01-31 01:01] LABS: APTT 30.2 SECONDS (22.8-39.4); INR 0.93 (0.85-1.17)
[2019-01-31 01:02] LABS: CALC OSMOLALITY 279 mosm/kg (275-300); CALCIUM 8.5 mg/dL (8.5-10.1); CARBON DIOXIDE 28.1 mmol/L (21.0-32.0); CHLORIDE - SERUM 104 mmol/L (98-107); CREATININE - SERUM 1.1 mg/dL (0.6-1.3); GLUCOSE 119 mg/dL (74-106); POTASSIUM - SERUM 3.7 mmol/L (3.5-5.1); SODIUM 141 mmol/L (136-145); UREA NITROGEN 7 mg/dL (7-18); eGFR NON AFRICAN AMERICAN 78 mL/min (90-120)
[2019-01-31 01:04] LABS: PLATELET COUNT 222 10x3/uL (130-400)
[2019-01-31 01:09] LABS: ALBUMIN 3.3 g/dL (3.4-5.0); ALKALINE PHOSPHATASE 99 U/L (46-116); ALT (SGPT) 31 U/L (10-68); BILIRUBIN - TOTAL 0.28 mg/dL (0.2-1.3); PROTEIN - SERUM 6.8 g/dL (6.4-8.2)
[2019-01-31] MEDS ORDERED: ANUSOL-HC25 MG RC (02:38)
== END 2019-01-31 02:47 | disposition home or self-care (01) ==
LOC: D.ER 00:19
PROVIDERS: Family Medicine
DX: K64.8 Other hemorrhoids (principal)

== ENCOUNTER 2019-03-13 11:32 | Emergency (ER) | payer OTHER ==
[~2019-03-13] VITALS: Ht 175.3 cm; Wt 100.0 kg
[~2019-03-13 11:32] MED LIST changes: +AMBIEN10 MG PO; +BUSPAR10 MG PO
[2019-03-13 11:34] VITALS: Ht 175.3 cm; Wt 100.0 kg
[2019-03-13 12:14] LABS: BASOPHILS 0.4 % (0-2); EOSINOPHILS 3.6 % (0-7); HEMATOCRIT 42.3 % (42.0-54.0); HEMOGLOBIN 14.4 g/dL (13.5-17.5); IMMATURE GRANULOCYTES 0.2 % (0-5); LYMPHOCYTES 22.1 % (15-50); MCH 30.2 pg (26.0-34.0); MCV 88.7 fL (80.0-100.0); MEAN PLATELET VOLUME 8.9 fL (7.4-10.4); MONOCYTES 5.9 % (2-11); NEUTROPHILS 67.8 % (40-80); PLATELET COUNT 250 10x3/uL (130-400); RBC 4.77 10x6/uL (4.20-6.10); RDW 12.9 % (11.5-14.5); WBC 5.1 10x3/uL (4.8-10.8)
[2019-03-13 12:22] LABS: ALBUMIN 3.4 g/dL (3.4-5.0); ALKALINE PHOSPHATASE 86 U/L (46-116); ALT (SGPT) 22 U/L (10-68); BILIRUBIN - TOTAL 0.49 mg/dL (0.2-1.3); CALC OSMOLALITY 280 mosm/kg (275-300); CALCIUM 8.4 mg/dL (8.5-10.1); CARBON DIOXIDE 24.8 mmol/L (21.0-32.0); CHLORIDE - SERUM 107 mmol/L (98-107); CREATININE - SERUM 0.8 mg/dL (0.6-1.3); GLUCOSE 112 mg/dL (74-106); MAGNESIUM - SERUM 1.7 mg/dL (1.8-2.4); POTASSIUM - SERUM 3.9 mmol/L (3.5-5.1); PROTEIN - SERUM 6.9 g/dL (6.4-8.2); SODIUM 141 mmol/L (136-145); UREA NITROGEN 10 mg/dL (7-18); eGFR NON AFRICAN AMERICAN > 90 mL/min (90-120)
[2019-03-13 12:41] LABS: APPEARANCE CLEAR (CLEAR); BILIRUBIN NEGATIVE (NEGATIVE); COLOR YELLOW (YELLOW); GLUCOSE NEGATIVE (NEGATIVE); KETONE SMALL mg/dL (NEGATIVE); NITRITE NEGATIVE (NEGATIVE); PROTEIN TRACE mg/dL (NEGATIVE); SPECIFIC GRAVITY 1.005 (1.005-1.020); UDS - AMPHET NEGATIVE QUAL (NEGATIVE); UDS - BARB NEGATIVE QUAL (NEGATIVE); UDS - BENZO NEGATIVE QUAL (NEGATIVE); UDS - COCAINE NEGATIVE QUAL (NEGATIVE); UDS - OPIATE NEGATIVE QUAL (NEGATIVE); UDS - PCP NEGATIVE QUAL (NEGATIVE); UDS - THC POSITIVE QUAL (NEGATIVE); UROBILINOGEN NORMAL (NORMAL)
[2019-03-13 12:44] LABS: AMORPHOUS SEDIMENT >1+ /lpf (NONE SEEN); BACTERIA FEW /hpf (NEGATIVE); EPITHELIAL CELLS 0-5 /hpf (0-5); RED CELLS - URINE 0-5 /hpf (0-5); WHITE CELLS - URINE OCC /hpf (NEGATIVE)
[2019-03-13 12:45] LABS: CALCIUM OXALATE CRYSTALS 0-5 /hpf (NONE SEEN)
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
[2019-03-13 18:03] VITALS: BP 129/86
== END 2019-03-13 18:04 ==
LOC: D.ER 11:32
PROVIDERS: Family Medicine
DX: R45.851 Suicidal ideations (principal)

== ENCOUNTER 2020-06-01 14:53 | Emergency (ER) | payer OTHER ==
[~2020-06-01] VITALS: Ht 175.3 cm; Wt 104.5 kg
[2020-06-01 14:55] VITALS: Ht 175.3 cm; Wt 104.5 kg
[2020-06-01 15:29] LABS: BILIRUBIN NEGATIVE (NEGATIVE); KETONE NEGATIVE (NEGATIVE); NITRITE NEGATIVE (NEGATIVE); UROBILINOGEN NORMAL mg/dL (< 2)
[2020-06-01 15:33] LABS: UDS - AMPHET NEGATIVE QUAL (NEGATIVE); UDS - BARB NEGATIVE QUAL (NEGATIVE); UDS - BENZO NEGATIVE QUAL (NEGATIVE); UDS - COCAINE NEGATIVE QUAL (NEGATIVE); UDS - OPIATE NEGATIVE QUAL (NEGATIVE); UDS - PCP NEGATIVE QUAL (NEGATIVE); UDS - THC POSITIVE QUAL (NEGATIVE)
[2020-06-01 15:35] LABS: BASOPHILS 0.3 % (0-2); EOSINOPHILS 2.3 % (0-7); HEMATOCRIT 46.3 % (42.0-54.0); HEMOGLOBIN 15.9 g/dL (13.5-17.5); IMMATURE GRANULOCYTES 0.3 % (0-5); LYMPHOCYTE ABS# 2.14 10x3/uL (1.32-3.57); LYMPHOCYTES 30.3 % (15-50); MCH 31.4 pg (26.0-34.0); MCHC 34.3 g/dL (31.0-37.0); MCV 91.5 fL (80.0-100.0); MONOCYTES 9.3 % (2-11); NEUTROPHIL ABS# 4.07 10x3/uL (1.78-5.38); NEUTROPHILS 57.5 % (40-80); PLATELET COUNT 217 10x3/uL (130-400); RBC 5.06 10x6/uL (4.20-6.10); RDW 13.4 % (11.5-14.5); WBC 7.1 10x3/uL (4.8-10.8)
[2020-06-01 15:48] LABS: ANION GAP 13.4 mmol/L (8-16); CARBON DIOXIDE 25.9 mmol/L (21.0-32.0); CREATININE - SERUM 1.2 mg/dL (0.6-1.3); POTASSIUM - SERUM 4.3 mmol/L (3.5-5.1)
[2020-06-01 15:54] LABS: ALBUMIN 3.8 g/dL (3.4-5.0); BILIRUBIN - TOTAL 0.35 mg/dL (0.2-1.3); MAGNESIUM - SERUM 2.1 mg/dL (1.8-2.4); PROTEIN - SERUM 7.2 g/dL (6.4-8.2)
--- NOTE | 2020-06-01 18:09 | NUR ---
DR. JETT NOTIFIED AND SITTER ORDERED. SITTER AT BEDSIDE. NOTIFIED CHARGE NURSE AND ATTENDING IN REGARDS TO ASSESSMENT FINDINGS. RESOURCES GIVEN TO PATIENT AND SAFETY PLAN INITIATED.
[2020-06-01 18:30] LABS: SARS-CoV-2 ANTIGEN NEGATIVE- SARS-COV-2 (NEGATIVE)
[2020-06-02 01:12] VITALS: BP 134/75
== END 2020-06-02 03:56 ==
LOC: D.ER 14:53
PROVIDERS: Emergency Medicine
DX: R45.851 Suicidal ideations (principal); F31.9 Bipolar disorder, unspecified; T42.6X2A Poisoning by other antiepileptic and sedative-hypnotic drugs, intentional self-harm, initial encounter; Z86.73 Personal history of transient ischemic attack (TIA), and cerebral infarction without residual deficits; R44.0 Auditory hallucinations; R10.9 Unspecified abdominal pain

== ENCOUNTER 2020-06-08 18:00 | Emergency (ER) | payer OTHER ==
[~2020-06-08] VITALS: Ht 175.3 cm; Wt 104.5 kg
[2020-06-08 18:27] VITALS: Ht 175.3 cm; Wt 104.5 kg
[2020-06-08 18:55] LABS: BASOPHILS 0.5 % (0-2); HEMATOCRIT 42.1 % (42.0-54.0); HEMOGLOBIN 14.5 g/dL (13.5-17.5); IMMATURE GRANULOCYTES 0.4 % (0-5); LYMPHOCYTE ABS# 2.97 10x3/uL (1.32-3.57); LYMPHOCYTES 28.5 % (15-50); MCH 31.1 pg (26.0-34.0); MCHC 34.4 g/dL (31.0-37.0); MCV 90.3 fL (80.0-100.0); MEAN PLATELET VOLUME 9.1 fL (7.4-10.4); MONOCYTES 5.7 % (2-11); NEUTROPHIL ABS# 6.67 10x3/uL (1.78-5.38); NEUTROPHILS 63.9 % (40-80); PLATELET COUNT 267 10x3/uL (130-400); RBC 4.66 10x6/uL (4.20-6.10); RDW 13.1 % (11.5-14.5); WBC 10.4 10x3/uL (4.8-10.8)
[2020-06-08 19:04] LABS: ANION GAP 18.3 mmol/L (8-16); CALCIUM 8.8 mg/dL (8.5-10.1); CARBON DIOXIDE 23.3 mmol/L (21.0-32.0); CREATININE - SERUM 1.2 mg/dL (0.6-1.3); POTASSIUM - SERUM 3.6 mmol/L (3.5-5.1)
[2020-06-08 19:10] LABS: ALBUMIN 3.9 g/dL (3.4-5.0); BILIRUBIN - TOTAL 0.33 mg/dL (0.2-1.3); MAGNESIUM - SERUM 1.9 mg/dL (1.8-2.4); PROTEIN - SERUM 7.1 g/dL (6.4-8.2)
[2020-06-08 19:23] LABS: BILIRUBIN NEGATIVE (NEGATIVE); KETONE SMALL mg/dL (NEGATIVE); NITRITE NEGATIVE (NEGATIVE); UROBILINOGEN NORMAL mg/dL (< 2)
[2020-06-08 19:30] LABS: UDS - AMPHET NEGATIVE QUAL (NEGATIVE); UDS - BARB NEGATIVE QUAL (NEGATIVE); UDS - BENZO NEGATIVE QUAL (NEGATIVE); UDS - COCAINE NEGATIVE QUAL (NEGATIVE); UDS - OPIATE NEGATIVE QUAL (NEGATIVE); UDS - PCP NEGATIVE QUAL (NEGATIVE); UDS - THC POSITIVE QUAL (NEGATIVE)
[2020-06-08 22:22] LABS: SARS-CoV-2 ANTIGEN NEGATIVE- SARS-COV-2 (NEGATIVE)
--- NOTE | 2020-06-08 22:50 | NUR ---
DR JETT NOTIFIED AND SITTER ORDERED. SITTER AT BEDSIDE. NOTIFIED CHARGE NURSE AND ATTENDING IN REGARDS TO ASSESSMENT FINDINGS. RESOURCES GIVEN TO PT AND SAFETY PLAN INITIATED.
[2020-06-09 02:45] VITALS: BP 132/81
== END 2020-06-09 02:45 ==
LOC: D.ER 18:00
PROVIDERS: Emergency Medicine
DX: F20.9 Schizophrenia, unspecified (principal); F31.9 Bipolar disorder, unspecified; R45.851 Suicidal ideations; F10.10 Alcohol abuse, uncomplicated; Y90.0 Blood alcohol level of less than 20 mg/100 ml; R10.9 Unspecified abdominal pain